=== PATIENT | female | born 2000 | race Caucasian/White ===

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

== ENCOUNTER → 2021-08-25 14:01 | Outpatient (BNVA) | payer OTHER, SELFPAY | PROVIDERS: PCP Family Medicine; Visit Provider Nurse Practitioner Family | DX: R50.9 Fever, unspecified (principal); J10.1 Influenza due to other identified influenza virus with other respiratory manifestations | CPT/HCPCS: 87400 ==

== ENCOUNTER 2021-12-03 06:00 | Outpatient (RCR) | payer OTHER, SELFPAY | END 2021-12-07 23:55 | disposition home or self-care (01) | LOC: TPT 06:00 | PROVIDERS: PCP Family Medicine; Referring Provider Orthopaedic Surgery; Visit Provider Orthopaedic Surgery | DX: Z98.890 Other specified postprocedural states (principal) | CPT/HCPCS: 97032; 97110; 97162 ==

== ENCOUNTER 2021-12-08 06:00 | Outpatient (RCR) | payer OTHER, SELFPAY | END 2022-01-07 23:59 | disposition home or self-care (01) | LOC: TPT 06:00 | PROVIDERS: PCP Family Medicine; Referring Provider Orthopaedic Surgery; Visit Provider Orthopaedic Surgery | DX: Z98.890 Other specified postprocedural states (principal) | CPT/HCPCS: 97110; 97140 ==

== ENCOUNTER 2022-01-08 06:00 | Outpatient (RCR) | payer OTHER, SELFPAY | END 2022-02-06 23:59 | disposition home or self-care (01) | LOC: TPT 06:00 | PROVIDERS: PCP Family Medicine; Referring Provider Orthopaedic Surgery; Visit Provider Orthopaedic Surgery | DX: S83.511A Sprain of anterior cruciate ligament of right knee, initial encounter (principal); X58.XXXA Exposure to other specified factors, initial encounter | CPT/HCPCS: 97110; 97140 ==

== ENCOUNTER 2022-02-07 06:00 | Outpatient (RCR) | payer OTHER, SELFPAY | END 2022-03-09 23:59 | disposition home or self-care (01) | LOC: TPT 06:00 | PROVIDERS: PCP Family Medicine; Visit Provider Orthopaedic Surgery | DX: Z98.890 Other specified postprocedural states (principal) | CPT/HCPCS: 97110; 97140; 97164 ==

== ENCOUNTER 2022-03-10 06:00 | Outpatient (RCR) | payer OTHER, SELFPAY | END 2022-04-08 23:59 | disposition home or self-care (01) | LOC: TPT 06:00 | PROVIDERS: PCP Family Medicine; Visit Provider Orthopaedic Surgery | DX: Z98.890 Other specified postprocedural states (principal) | CPT/HCPCS: 97110; 97140 ==

== ENCOUNTER 2022-06-01 06:00 | Outpatient (RCR) | payer OTHER, SELFPAY | END 2022-06-09 23:59 | disposition home or self-care (01) | LOC: APT 06:00 | PROVIDERS: PCP Family Medicine; Visit Provider Physician Assistant | DX: Z98.890 Other specified postprocedural states (principal) | CPT/HCPCS: 97161 ==

== ENCOUNTER 2022-06-10 06:00 | Outpatient (RCR) | payer OTHER, SELFPAY | END 2022-07-07 23:59 | disposition home or self-care (01) | LOC: APT 06:00 | PROVIDERS: PCP Family Medicine; Visit Provider Physician Assistant | DX: Z98.890 Other specified postprocedural states (principal) | CPT/HCPCS: 97110; 97140 ==

== ENCOUNTER 2022-12-14 14:52 | Emergency (ER) | payer OTHER, SELFPAY ==
[2022-12-14 14:56] VITALS: BP 122/83; PULSE 87; RESP 16; TEMP 37; O2SAT 98; BMI 41.5
[2022-12-14 15:33] VITALS: BP 137/69; PULSE 85; O2SAT 95
--- NOTE | 2022-12-14 16:11 | ED_ITS ---
HPI - Abdominal Pain General: Chief Complaint: Abdominal Pain Stated Complaint: abd pain Time Seen by Provider: 12/14/22 15:33 History of Present Illness: 22-year-old female presents to the emergency department for 3 weeks of postprandial epigastric pain along with nausea. She denies any fevers, stool changes, urinary symptoms. She does not have menstrual cycles due to wearing a control patch. She reports has been taking ibuprofen 4 to most every day. She reports her diet consists almost exclusively of fast food and fried food. She is not having vomiting. She does still have her gallbladder. Associated Symptoms: Reports heartburn and nausea; Denies change in stool character, chills, coffee ground emesis, constipation, diarrhea, dysuria, fever(s), hematochezia, hematemesis, melena, syncope and vomiting Review of Systems General: Reports: 10 or more systems reviewed and unremarkable except in HPI and below Const: Denies: fever(s), chills or body aches ENMT: Denies: throat pain Card: Denies: edema or syncope Resp: Denies: dyspnea or productive cough GI: Reports: abdominal pain, nausea and heartburn; Denies: vomiting, hematemesis, coffee ground emesis, dysphagia, diarrhea, constipation, change in stool character, hematochezia, melena or mucus in stool : Denies: flank pain, dysuria or urinary frequency Musc: Reports: back pain (Unrelated low back pain); Denies: neck pain, extremity pain or extremity swelling Skin/Breast: Denies: rash or erythema PFSH ED PFSH: Social History (System 09/10/21 @ 16:13 by Shannon Nobles) Smoking and tobacco status: never smoked Second hand smoke exposure: No Smoking risk assessment/counseling performed?: No Alcohol intake: never Desire information about alcohol rehabilitation?: No Counseling given: No Substance/Drug Use: never Desire information about substance/drug rehabilitation?: No Counseling given: No Adopted: No Caregiver/support person: No Lives independently: Yes Housing: House Marital status: Single Number of children: 0 service: No Current occupational status: employed Physical Exam Const: COMMON NORMALS: no limitations and alert EXAM LIMITATIONS: no altered mental status HENMT: COMMON NORMALS: normocephalic, atraumatic and external ears normal HEAD & SCALP: normocephalic and atraumatic EXTERNAL EAR: Yes external ears normal MOUTH: no muffled voice Neck/C-Spine: COMMON NORMALS: no JVD GENERAL: Yes normal visual inspection and Yes trachea midline Resp: COMMON NORMALS: normal respiratory effort, No use of accessory muscles and clear to auscultation bilaterally AUSCULTATION: clear to auscultation bilaterally Cardio: COMMON NORMALS: no JVD, regular rate and regular rhythm RATE: regular rate RHYTHM: regular rhythm GI: COMMON NORMALS: Soft to palpation INSPECTION: Yes central obesity PALPATION: Yes Soft to palpation, No Firmness to palpation present (GI), Yes Tenderness to palpation present (GI) (Directly under the xiphoid. No other tenderness), No Guarding due to palpation present (GI) and No Rigid due to palpation OTHER: Negative Morris's. Negative McBurney's. Extremity: COMMON NORMALS: normal to inspection Neuro: COMMON NORMALS: moves all extremities, no focal motor deficits and no sensory deficits noted SENSORIUM/ORIENTATION: Yes alert SPEECH: speech normal Psych: COMMON NORMALS: mental status grossly normal, Normal thought process present, cooperative, normal affect and speech normal SPEECH: Yes normal speech THOUGHT PROCESS: Normal thought process present Skin: COMMON NORMALS: no rashes or lesions noted, turgor normal and no jaundice GENERAL SKIN EXAM: no rashes or lesions noted and turgor normal Course Vital Signs: Vital signs: Vital Signs Temperature 98.6 F 12/14/22 14:56 Pulse Rate 61 12/14/22 19:11 Respiratory Rate 16 12/14/22 14:56 Blood Pressure 136/93 12/14/22 19:11 Pulse Oximetry 100 12/14/22 19:11 Oxygen Delivery Me thod Room Air 12/14/22 19:11 MDM - Abdominal Pain Medical Decision Making This is a pleasant 22-year-old female with morbid obesity who has a BMI of nearly 42. She eats fast food and fried foods for a majority of her diet. She has tenderness just below the xiphoid. She has been taking a lot of ibuprofen. She does not have right upper quadrant tenderness. The differential diagnosis would include hiatal hernia, gastritis, fatty liver disease, biliary colic, IBS, dyspepsia, constipation, potentially peptic ulcer disease, others. She does not have an acute abdomen. I gave her the option of changing her diet, stopping ibuprofen, and starting medication for gastritis versus doing laboratory work-up and ultrasound. She does want to proceed with the ultrasound and labs after discussing with her family. I will give her Nyad, Peyton Schmidt here today while redoing her work-up. Update. White blood cell count 10.6. Alkaline phosphatase mildly elevated. Other LFTs normal. Ultrasound of the gallbladder shows cholelithiasis and fatty infiltration of the liver. No signs of acute cholecystitis. I discussed with the patient and her sister that the epigastric pain could be related to the gallstones. I informed them that she would need to have a strict low-fat diet. I informed them how to find gallbladder diets online. I have made a referral to general surgery. The patient is going to stop taking ibuprofen as she could also have gastritis. She is going to take Tylenol instead and I have put her on a PPI. I have provided Zofran. I have given return precautions. I answered all questions. Lab Data 12/14/22 17:10 12/14/22 17:10 Labs/Radiology: Radiology Impressions Gallbladder Ultrasound 12/14/22 16:11 IMPRESSION: 1. Cholelithiasis. No evidence for acute cholecystitis. 2. Mild diffuse fatty infiltration of the liver. Laboratory Results WBC 10.6 10^3/uL (4.0-10.0) H 12/14/22 17:10 RBC 5.14 10^6/uL (4.1-5.3) 12/14/22 17:10 Hgb 14.0 g/dL (11.5-15.3) 12/14/22 17:10 Hct 42.5 % (37.0-47.0) 12/14/22 17:10 MCV 82.7 fl (81-99) 12/14/22 17:10 MCH 27.2 pg (28.0-34.0) L 12/14/22 17:10 MCHC 32.9 g/dL (30.0-36.0) 12/14/22 17:10 RDW 13.9 % (12.1-15.1) 12/14/22 17:10 Plt Count 277 10^3/cmm (130-400) 12/14/22 17:10 MPV 10.0 fL (7.4-10.4) 12/14/22 17:10 Neut % (Auto) 70.3 % 12/14/22 17:10 Lymph % (Auto) 21.3 % 12/14/22 17:10 Jenkins % (Auto) 7.5 % 12/14/22 17:10 Eos % (Auto) 0.3 % 12/14/22 17:10 Baso % (Auto) 0.3 % 12/14/22 17:10 Neut # (Auto) 7.45 10^3/uL (1.8-7.7) 12/14/22 17:10 Lymph # (Auto) 2.3 10^3/uL (0.8-4.8) 12/14/22 17:10 Jenkins # (Auto) 0.8 10^3/uL (0.2-0.9) 12/14/22 17:10 Eos # (Auto) 0.0 10^3/uL (0.0-0.8) 12/14/22 17:10 Baso # (Auto) 0.0 10^3/uL (0.0-0.1) 12/14/22 17:10 Nucleated RBC % (auto) 0 % 12/14/22 17:10 Nucleated RBCs # 0.0 /100WBC 12/14/22 17:10 Sodium 140 mmol/L (136-145) 12/14/22 17:10 Potassium 3.8 mmol/L (3.5-5.1) 12/14/22 17:10 Chloride 104 mmol/L (98-107) 12/14/22 17:10 Carbon Dioxide 24 mmol/L (22-29) 12/14/22 17:10 Anion Gap 15.8 (5-19) 12/14/22 17:10 BUN 10 mg/dL (6-20) 12/14/22 17:10 Creatinine 0.7 mg/dL (0.5-0.9) 12/14/22 17:10 GFR Calculation 105.6 mL/min (90-130) 12/14/22 17:10 Glucose 88 mg/dL (65-115) 12/14/22 17:10 Calculated Osmolality 288 mOsm/kg (285-295) 12/14/22 17:10 Calcium 8.7 mg/dL (8.5-10.5) 12/14/22 17:10 Total Bilirubin 0.5 mg/dL (0.15-1.2) 12/14/22 17:10 AST 17 U/L (0-32) 12/14/22 17:10 ALT 24 U/L (0-33) 12/14/22 17:10 Alkaline Phosphatase 125 U/L (35-105) H 12/14/22 17:10 Total Protein 7.4 g/dL (6.6-8.7) 12/14/22 17:10 Albumin 4.2 g/dL (3.5-5.2) 12/14/22 17:10 Globulin 3.2 g/dL (1.3-4.6) 12/14/22 17:10 Lipase 11 U/L (13-60) L 12/14/22 17:10 Discharge Plan Discharge Patient Disposition: Home Clinical Impression: Cholelithiasis, Biliary colic, Fatty liver, BMI 40.0-44.9, adult, Acute epigastric pain Condition: Stable Prescriptions: New omeprazole 20 mg capsule,delayed release(DR/EC) 20 mg PO DAILY 56 Days Qty: 60 0RF acetaminophen 500 mg capsule 500 mg PO Q6H PRN (Reason: pain) 30 Days Qty: 60 0RF ondansetron 4 mg tablet,disintegrating 4 mg PO Q6H PRN (Reason: nausea and vomiting) 7 Days Qty: 20 0RF Discontinued ibuprofen [Ibuprofen IB] 200 mg Tablet 200 mg PO Q6H PRN (Reason: Pain) No Action citalopram 20 mg tablet 20 mg PO DAILY Discharge Orders: Discharge ED (Routine); Ordered 12/14/22 Ordered By: Heath Mahmood Referrals: Rosey Carias MD [Primary Care Provider] - Bill Valadez DO [Physician] - 7-10 days (Postprandial epigastric pain with cholelithiasis) Discharge Diet: Low Fat Discharge Activity: Resume usual activity Patient Instructions: Biliary Colic (ED), Abdominal Pain (ED), Opioid Safety, Pain Management Activity Restrictions/Additional Instructions: Today you have been diagnosed with: Gallstones, fatty liver, central obesity. It is imperative that you avoid fatty foods as this will trigger your gallbladder and worsen your fatty liver disease. Additional information has been provided as handouts, please take the time to read and understand this information. It is very important that you follow up with a Doctor as discussed during your visit today, the information to contact your doctor is included in your discharge instructions. Failure to adhere to your follow up instructions may lead to severe disability, injury, or so please make sure to keep your appointments. Please return to the Emergency Department immediately and without fail if you experience any new, worsening, or concerning problems such as: Worsening abdominal pain, chest pain, shortness of breath, headache or body pain, fever, lightheadedness, weakness, numbness, or any other concerning symptoms. If taking a substance like an opiate or other strong pain medication, please do not drive or operate heavy machinery while under the effects of this medicine. Thank you for allowing us to participate in your care today. Coding Level of Care Code ED Vice President Integrated for Azalea Mike
--- NOTE | 2022-12-14 16:11 | USR_ITS ---
PROCEDURE INFORMATION: Exam: US Abdomen, Limited; Right Upper Quadrant Exam date and time: 12/14/2022 4:46 PM Age: 22 years old Clinical indication: Abdominal pain; Epigastric; Additional info: Epigastric pain/nausea after eating TECHNIQUE: Imaging protocol: Real time ultrasound of the abdomen with image documentation. Limited exam focused on the right upper quadrant. COMPARISON: US abdomen complete* [id number] 12/03/2016 9:05 AM FINDINGS: Liver: Mild diffuse increased echogenicity of the liver which measures 13.7 cm in length. Gallbladder: 1.9 cm calculus in the gallbladder. The gallbladder is partially folded with a normal wall thickness. Biliary ducts: Normal. No stones. No dilation. Pancreas: The pancreas is obscured by bowel gas. Right kidney: Normal. No mass. No hydronephrosis. Intraperitoneal space: No ascites. US/US gall bladder [id number] IMPRESSION: 1. Cholelithiasis. No evidence for acute cholecystitis. 2. Mild diffuse fatty infiltration of the liver.
[2022-12-14] MEDS: alum-mag-hydroxide-sime 30 mL UDC PO (16:14)
[2022-12-14] MEDS: ondansetron 4 MG Tablet PO (16:14)
[2022-12-14] MEDS: famotidine 20 mg Tablet 40 MG PO (16:15)
[2022-12-14 16:24] VITALS: BP 149/93; PULSE 82; O2SAT 98
[2022-12-14 17:14] LABS: Basophils % 0.3 %; Eosinophils % 0.3 %; Hematocrit 42.5 % (37.0-47.0); Lymphocytes # 2.3 10^3/uL (0.8-4.8); Lymphocytes % 21.3 %; Mean Corpuscular HGB Conc 32.9 g/dL (30.0-36.0); Mean Corpuscular Hemoglobin 27.2 pg (28.0-34.0); Mean Corpuscular Volume 82.7 fl (81-99); Monocytes # 0.8 10^3/uL (0.2-0.9); Monocytes % 7.5 %; Neutrophils # 7.45 10^3/uL (1.8-7.7); Neutrophils % 70.3 %; Nucleated Red Blood Cells % 0 %; Platelet Count 277 10^3/cmm (130-400); Red Blood Count 5.14 10^6/uL (4.1-5.3); Red Cell Distribution Width 13.9 % (12.1-15.1); White Blood Count 10.6 10^3/uL (4.0-10.0)
[2022-12-14 17:28] VITALS: BP 115/76; PULSE 73; O2SAT 97
[2022-12-14 17:39] LABS: Alanine Aminotransferase 24 U/L (0-33); Albumin Level 4.2 g/dL (3.5-5.2); Alkaline Phosphatase 125 U/L (35-105); Anion Gap 15.8 (5-19); Aspartate Amino Transferase 17 U/L (0-32); Blood Urea Nitrogen 10 mg/dL (6-20); Calcium 8.7 mg/dL (8.5-10.5); Carbon Dioxide 24 mmol/L (22-29); Chloride 104 mmol/L (98-107); Creatinine Clr Calc Pharmacy 159.6709; Globulin 3.2 g/dL (1.3-4.6); Glomerular Filtration Rate 105.6 mL/min (90-130); Glucose 88 mg/dL (65-115); Lipase 11 U/L (13-60); Osmolality Calculated 288 mOsm/kg (285-295); Potassium 3.8 mmol/L (3.5-5.1); Sodium 140 mmol/L (136-145); Total Bilirubin 0.5 mg/dL (0.15-1.2); Total Protein 7.4 g/dL (6.6-8.7)
[2022-12-14 18:30] VITALS: BP 116/63; PULSE 72; O2SAT 98
[2022-12-14 19:11] VITALS: BP 136/93; PULSE 61; O2SAT 100
--- NOTE | 2022-12-15 07:34 | DCPLANNER ---
Addendum entered by Brandy Alcantara 12/23/22 11:50: Patient had a follow up appointment scheduled with general surgery on 12.22.22 -patient did attend appointment. Original Note: manager market development had message to schedule a follow up appointment for patient with general surgery. manager market development sent patients information to the front office staff at general surgery. Patients information will be printed and reviewed. Clinic will call patient with appointment information.
== END 2022-12-14 20:04 | disposition home or self-care (01) ==
PROVIDERS: Emergency Provider Emergency Medicine; PCP Family Medicine
DX: K80.70 Calculus of gallbladder and bile duct without cholecystitis without obstruction (principal); K76.0 Fatty (change of) liver, not elsewhere classified; E66.01 Morbid (severe) obesity due to excess calories; Z68.41 Body mass index [BMI] 40.0-44.9, adult
CPT/HCPCS: 36415; 76705; 80053; 83690; 85025; 99284; Q0162

== ENCOUNTER → 2022-12-22 10:25 | Outpatient (BNVA) | payer OTHER, SELFPAY | PROVIDERS: PCP Family Medicine; Visit Provider Surgery | DX: R94.5 Abnormal results of liver function studies (principal); K82.9 Disease of gallbladder, unspecified; K80.20 Calculus of gallbladder without cholecystitis without obstruction | CPT/HCPCS: 36415; 80048; 80076; 85025 ==

== ENCOUNTER 2023-01-06 05:48 | Day surgery (SDC) | payer OTHER, SELFPAY ==
[2023-01-05 08:47] VITALS: BMI 40.9
[2023-01-06] VITALS (9 sets, daily range): BP systolic 106–134; BP diastolic 54–101; PULSE 53–93; RESP 15–24; TEMP 36.1–36.3; O2SAT 92–99
--- NOTE | 2023-01-06 06:13 | P.HPUD_ITS ---
Surgery/Procedure H&P Update DATE OF PROCEDURE: January 06, 2023 DATE H&P PERFORMED: 12/22/22 H&P UPDATE INFORMATION: I have reviewed H&P completed within last 30 days, I have examined patient prior to procedure, No changes to prior documentation and H&P is in [facility] EMR on date indicated PLANNED PROCEDURE: Operation Date: 01/06/23 07:00 Proposed Procedures p Laparoscopic Cholecystectomy 03088,K80.20(Not Applicable) - Marcos Snow MD
[2023-01-06] MEDS: sodium chloride 0.9% 1,000 ML 30 ML IV (06:21)
--- NOTE | 2023-01-06 06:38 | ANES.PREANE2 ---
Pre-Anesthetic Assessment Height/Weight: Height 1.66 m Weight 113.398 kg Temp Pulse Resp BP Pulse Ox O2 Del Method 97 F L 64 16 126/68 98 Room Air 01/06/23 06:12 01/06/23 06:12 01/06/23 06:12 01/06/23 06:12 01/06/23 06:12 01/06/23 06:12 Operation Date: 01/06/23 07:00 Proposed Procedures p Laparoscopic Cholecystectomy 95204,K80.20(Not Applicable) - Marcos Snow MD Familial anesthetic complications: None Was Beta Leann taken within 24 hours: N/A Was Clonidine taken within 24 hours: N/A Last intake: Intake Last Liquid Date 01/05/23 Last Liquid Time 23:00 Last Solid Date 01/05/23 Last Solid Time 20:00 Social No alcohol and No tobacco Vapes Exam alert, oriented x 3, clear to auscultation bilaterally and regular rate & rhythm Airway Mallampati: Class I Dentition: full and other (braces with 1 loose bracket) Metabolic Morbid Obesity Anesthetic Plan ASA status: 2 Anesthesia: General Risk of > 500 ml blood loss (7ml/kg in children): No Medications/Allergies Home Medications Medication Instructions Recorded Confirmed Last Taken Type acetaminophen 500 mg capsule 500 mg PO Q6H PRN pain 30 days #60 12/14/22 01/06/23 01/04/23 Rx caps citalopram 20 mg tablet 20 mg PO DAILY 12/14/22 01/06/23 01/04/23 History omeprazole 20 mg capsule,delayed 20 mg PO DAILY 8 weeks #60 caps 12/14/22 01/06/23 01/04/23 Rx release Allergies Allergy/AdvReac Type Severity Reaction Status Date / Time adhesive Allergy breaks Verified 12/22/22 09:36 skin out Latex, Natural Rubber Allergy ALGY-Rash Verified 12/22/22 09:36 pseudoephedrine Allergy ADR-Insomni Verified 12/22/22 09:36 a Current Medications Generic Name Dose Route Start Last Admin Trade Name Freq PRN Reason Stop Dose Admin Sodium Chloride 1,000 mls @ 30 mls/hr 01/06/23 06:00 01/06/23 06:21 Sodium Chloride 0.9% IV 01/07/23 05:59 30 mls/hr .Q24H TASHIA Administration PFSH Anesthesia Family History (Updated 12/22/22 @ 09:37 by GIO Baez) Grandmother Cancer cancer unknown what kind Social History (Updated 12/22/22 @ 09:37 by GIO Baez) Smoking and tobacco status: current every day smoker e-cigarettes E-Cigarette Details: with nicotine Second hand smoke exposure: No Smoking risk assessment/counseling performed?: No Alcohol intake: current Alcohol intake frequency: holidays/special occasions only Desire information about alcohol rehabilitation?: No Counseling given: No Substance/Drug Use: never Desire information about substance/drug rehabilitation?: No Counseling given: No Adopted: No Caregiver/support person: No Lives independently: Yes Housing: House Marital status: Single Number of children: 0 service: No Current occupational status: employed Data Anesthesia Cardiac Studies: No Data to Display
[2023-01-06] MEDS: ceFAZolin 2,000 MG in sodium chloride 0.9% (plus) 50 ML 100 MG IV (06:59)
[2023-01-06 07:24] LABS: OR HCG Qualitative Urine Negative (Negative)
[2023-01-06] MEDS: BUPivacaine 0.25% INJ 10 mL INJECTION (07:39)
[2023-01-06] MEDS: lidocaine-epi 1% 20 mL INJ 7 ML INJECTION (07:40)
--- NOTE | 2023-01-06 09:06 | P.OP_ITS ---
Operative Report Date of procedure: January 06, 2023 Pre-op diagnosis: Symptomatic cholelithiasis Post-op diagnosis: Symptomatic cholelithiasis Procedure done: Laparoscopic ostectomy Specimens removed/disposition: Gallbladder Surgeon: Marcos Snow MD Estimated blood loss: 5cc Complications: none Findings: Distended gallbladder, dilated cystic duct measuring up to 1 cm in diameter. Critical view of safety obtained before transecting the duct. Brief History: This is a 22-year-old female with symptomatic cholelithiasis who presents for laparoscopic cholecystectomy after all risk and benefits of the procedure were discussed during my preop visit. Procedure: Patient was taken to the OR, placed in the supine position. Anesthesia was given. The abdomen was prepped and draped in the usual sterile fashion. Timeout was conducted. The abdomen was accessed via a supraumbilical incision with an open technique 12 mm Trocar Was Placed and Fixed to the Fascia with 0 Vicryl. Pneumoperitoneum Was Obtained. Additional 5 Mm Trocars Were Placed in the Epigastric Right Upper Quadrant and Right Flank Region. The Gallbladder Was Retracted Cephalad. The Peritoneum Anterior to Hepatocystic Tanner Was Opened with Electrocautery. This Opening Was Carried down to the Edges of the Gallbladder Where the Gallbladder Meets the Liver. Careful Dissection with [place] and Endo Kitner Was Done on the Hepatocystic Tanner. Cystic Duct and Artery Were Identified in the Lower Third of the Gallbladder Was from the Liver Bed. The Cystic Artery with a Stent Double Clip and Transected. The Cystic Duct Was Noted to Be Short and Dilated, Therefore I Had to Upsize the Epigastric Port to a 12 Mm Trocar to Allow for a Large Clip Portfolio Analyst. The Duct Was Then Clipped and Transected. The Gallbladder Was Excised from the Gallbladder Bed with Electrocautery. Liver Bed and Gallbladder Basing Was Evaluated and Noted to Be Hemostatic and No Evidence of Bile Leak. The Gallbladder Was Retrieved Via the Umbilical Port Site in an Endo Catch Bag. Umbilical Port Site was then closed with Alex-Carmen under direct visualization using 0 Vicryl. The right upper quadrant and right flank ports were removed under direct visualization. This epigastric bur was used to evacuate the pneumoperitoneum and subsequently remove. The wounds were closed with 4-0 Monocryl and Dermabond was applied. At the end of the procedure all counts were correct. The patient was extubated and transferred to the PACU in a stable condition.
[2023-01-06] MEDS: meloxicam 7.5 mg tablet 15 MG PO (10:12)
--- NOTE | 2023-01-06 10:20 | ANE.PACU2 ---
Inpatient post-anesthesia follow up: Airway intact: Yes Vital signs: Temperature 97.4 F Pulse Rate 53 Respiratory Rate 16 Blood Pressure 106/70 Pulse Oximetry 96 Oxygen Delivery Me thod Room Air Oxygen Flow Rate 6 Fraction of Inspir ed Oxygen Hydration adequate: Yes Nausea and vomiting: No Pain level: 1 Mental status: Baseline
== END 2023-01-06 10:20 | disposition home or self-care (01) ==
PROVIDERS: Anesthesiology; PCP Family Medicine; Visit Provider Surgery
PROC: 0FT44ZZ Resection of Gallbladder, Percutaneous Endoscopic Approach (ICD-10-PCS; CPT 47562; principal; 2023-01-06 07:00)
DX: K80.10 Calculus of gallbladder with chronic cholecystitis without obstruction (principal); E66.01 Morbid (severe) obesity due to excess calories; Z68.41 Body mass index [BMI] 40.0-44.9, adult; F17.290 Nicotine dependence, other tobacco product, uncomplicated
CPT/HCPCS: 47562; 81025; 84703; 88304; J0690; J1100; J1200; J1885; J2250; J2405; J2704; J3010; J3490; J7030

== ENCOUNTER 2023-05-22 12:51 | Emergency (ER) | payer OTHER, SELFPAY ==
[2023-05-22 12:57] VITALS: BP 155/82; PULSE 110; RESP 17; TEMP 36.9; O2SAT 100; BMI 41.5
--- NOTE | 2023-05-22 13:13 | XRR_ITS ---
PROCEDURE INFORMATION: Exam: XR Right Knee Exam date and time: 05/22/2023 1:22 PM Age: 22 years old Clinical indication: Pain; Knee; Right TECHNIQUE: Imaging protocol: Radiologic exam of the right knee. Views: 3 views. COMPARISON: No relevant prior studies available. FINDINGS: Bones/joints: Cruciate ligament repair. The femoral interference screw projects in the soft tissues posterior to the distal femur. It is not within bone. The tibial interference screw is visible within the tibia. No osseous injury. Soft tissues: Normal. XR/XR knee RT 3V* [id number] IMPRESSION: Cruciate ligament repair with the femoral interference screw within the soft tissues posterior to the femur.
--- NOTE | 2023-05-22 13:17 | ED_ITS ---
HPI - Extremity Problem General: Chief complaint: Extremity Injury, Lower Stated complaint: knee popped/ pain Time Seen by Provider: 05/22/23 13:10 Source: patient Mode of arrival: ambulatory History of Present Illness: 22-year-old female with a history of pre vious knee arthroscopies for an ACL repair comes in today complaining of pain and had a popping sensation just randomly happened while she was walking. She has discomfort in her right knee now no falls or recent injury her last surgery was several years ago. She tells me at one point they told her she had a screw loose, in her knee MD Complaint: joint pain Onset (ago): hour(s) Location: right and knee Quality: sharp Relieving factors: nothing Exacerbating factors: nothing Associated symptoms: Deny arthralgias, chest pain, fever(s), myalgias, rash or short of breath Review of Systems Const: Denies: fever(s) Card: Denies: chest pain Resp: Denies: dyspnea GI: Denies: abdominal pain : Denies: dysuria, urinary frequency or urinary urgency Musc: Denies: neck pain or back pain Skin/Breast: Denies: rash PFSH ED PFSH: Family History Grandmother Cancer cancer unknown what kind Social History Smoking and tobacco/nicotine status: current every day tobacco/nicotine user e- cigarettes E-Cigarette Details: with nicotine Second hand smoke exposure: No Alcohol intake: current Alcohol intake frequency: holidays/special occasions only Substance/Drug Use: never Adopted: No Caregiver/support person: No Lives independently: Yes Housing: House Marital status: Single Number of children: 0 service: No Current occupational status: employed Physical Exam Const: COMMON NORMALS: no acute distress GENERAL APPEARANCE: cooperative and comfortable ORIENTATION/CONSCIOUSNESS: Yes awake, Yes oriented to person, Yes oriented to place and Yes oriented to time HENMT: COMMON NORMALS: normocephalic, atraumatic and hearing grossly normal bilaterally HEAD & SCALP: normocephalic and atraumatic Resp: COMMON NORMALS: normal respiratory effort, No retractions, No use of accessory muscles and clear to auscultation bilaterally AUSCULTATION: clear to auscultation bilaterally Cardio: COMMON NORMALS: regular rate, regular rhythm and No murmurs present (Cardio) RATE: regular rate RHYTHM: regular rhythm GI: COMMON NORMALS: Soft to palpation and No hepatosplenomegaly present AUSCULTATION: Yes normoactive bowel sounds PALPATION: Yes Soft to palpation, No Tenderness to palpation present (GI), No Guarding due to palpation present (GI) and Yes No hepatosplenomegaly present Extremity: COMMON NORMALS: normal to inspection, capillary refill normal, no clubbing, cyanosis or edema, no calf tenderness and no pedal edema Neuro: SENSORIUM/ORIENTATION: Yes oriented to person, Yes oriented to place and Yes oriented to time Skin: COMMON NORMALS: no rashes or lesions noted GENERAL SKIN EXAM: no rashes or lesions noted Course Vital Signs: Vital signs: Vital Signs Temperature 98.4 F 05/22/23 12:57 Pulse Rate 83 05/22/23 13:45 Respiratory Rate 17 05/22/23 12:57 Blood Pressure 131/89 05/22/23 13:45 Pulse Oximetry 97 05/22/23 13:45 Oxygen Delivery Me thod Room Air 05/22/23 13:45 MDM - Extremity (Nontraumatic) Medical Decision Making X-ray shows the screw for the femoral portion of the ACL tear has migrated out o f the femur is in the soft tissue given its position suspect that is chronic. Mild joint effusion on exam no ligamentous instability or laxity. No laceration bruising or abrasion to the knee. Will place her in a knee immobilizer switch diclofenac to use as needed have her follow-up with orthopedics Medical Records I reviewed the patient's medical records. Lab Data I reviewed the patient's lab results. Radiology Impressions Knee X-Ray 05/22/23 13:13 IMPRESSION: Cruciate ligament repair with the femoral interference screw within the soft tissues posterior to the femur. All radiology interpretation(s) finalized by discharge Discharge Plan Discharge Patient Disposition: Home Clinical Impression: Knee sprain Condition: Stable Prescriptions: New diclofenac sodium 75 mg tablet,delayed release (DR/EC) 75 mg PO Q12H PRN (Reason: pain) Qty: 20 0RF Held meloxicam 15 mg tablet 15 mg PO DAILY Qty: 5 0RF Hold Instructions: Resume on 06/01/23. No Action citalopram 20 mg tablet 20 mg PO DAILY Discharge Orders: Discharge ED (Routine); Ordered 05/22/23 Ordered By: Rylan Simms Referrals: Rosey Carias MD [Primary Care Provider] - Discharge Diet: Usual diet Discharge Activity: Resume usual activity Patient Instructions: Opioid Safety, Pain Management Activity Restrictions/Additional Instructions: Thank you for choosing [facility] for your healthcare needs today. Please realize this is an emergency room and that we are providing you with a medical screening exam and this may not be complete and all inclusive of all the testing and or work up that you may need to determine your ailment or severity of your illness. It is very important that you follow up as instructed or that you return to the Emergency Department should you have concerns or if your condition changes or worsens in any way. You are seen today for right knee pain. A screw from your previous surgery is displaced from the bone and is in the soft tissue, this is most likely not acute. No acute fractures noted on the x-ray. Recommend that you use the knee immobilizer and be nonweightbearing on the knee and reevaluate later this week with orthopedics. You should not bear any weight on the right leg until cleared by orthopedics. 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
[2023-05-22 13:45] VITALS: BP 131/89; PULSE 83; O2SAT 97
[2023-05-22] MEDS: HYDROcodone-acetaminophen 5-325 mg Tablet 1 TAB PO (14:21)
[2023-05-22 14:33] VITALS: PULSE 86; O2SAT 97
--- NOTE | 2023-05-24 08:46 | DCPLANNER ---
Message was sent to ortho on 05/24/23 at 0846. Clinic to contact patient.
== END 2023-05-22 14:35 | disposition home or self-care (01) ==
PROVIDERS: Emergency Provider Family Medicine; PCP Family Medicine
DX: S83.91XA Sprain of unspecified site of right knee, initial encounter (principal); Z72.0 Tobacco use; X58.XXXA Exposure to other specified factors, initial encounter
CPT/HCPCS: 29530; 73562; 99283

== ENCOUNTER → 2023-05-27 15:25 | Outpatient (BNVA) | payer OTHER, SELFPAY | PROVIDERS: PCP Family Medicine; Visit Provider Nurse Practitioner | DX: M25.561 Pain in right knee; G89.29 Other chronic pain; T84.84XA Pain due to internal orthopedic prosthetic devices, implants and grafts, initial encounter; Y79.2 Prosthetic and other implants, materials and accessory orthopedic devices associated with adverse incidents; M23.51 Chronic instability of knee, right knee | CPT/HCPCS: 73560; 73565 ==

== ENCOUNTER 2023-07-02 12:43 | Outpatient (CLI) | payer OTHER, SELFPAY ==
--- NOTE | 2023-07-02 12:47 | MR_ITS ---
WS: [id number] MRI RIGHT KNEE, pre and post arthrogram. HISTORY: M23.51 - Chronic instability of knee, right knee, history of prior ACL repairs. COMPARISON: No similar studies. Knee radiograph 05/27/2023 Prearthrogram: Prior ACL repair. The ACL is vertical in appearance. There is no fluid along the expec carole location of the ACL. PCL is normal. Embedded in the soft tissues posterior to the femur is a scre w fragment measuring 2.8 x 1.1 cm. There is no edema around the screw fragment. This may be from a pr ior fractured screw with displacement. This may not be from the ACL repair that is present now but fr om the prior repair. There is no marrow edema. No fractures. There is a very small joint effusion. No definite meniscal tear. There is slight lateral subluxation of the patella. Post arthrogram: Good injection of the joint. No acute ACL tear is identified. No meniscal tears. No significant joint effusion. No loose bodies. Scattered hypointense signal abnormalities in the joint effusion which is probably injected air. No osteochondral lesion. IMPRESSION: 1. No recurrent ACL tear is identified. 2. Reidentified is a screw fragment posterior to the femoral condyle. There is no associated edema. This may be from a prior ACL repair. Does not appear to be acute. 3. Mild lateral subluxation of the patella. 4. No meniscal tear.
--- NOTE | 2023-07-02 13:00 | IR_ITS ---
WS: [id number] RIGHT KNEE ARTHROGRAM (FLUOROSCOPY) RIGHT knee arthrogram was performed in fluoroscopy prior to MRI evaluation. HISTORY: right knee pain, several prior surgeries including ACL repair. COMPARISON: Knee radiograph 05/27/2023 FLUOROSCOPY TIME: 1min [id number] # of spot films: 2 Procedure, risks and complications were explained to the patient. Complications include but not limit ed to bleeding, infection and contrast reaction. Current medications are reviewed. Skin is cleansed with ChloraPrep. Skin is anesthetized with 1% buffered lidocaine. 22-gauge needle is inserted into the patellofemoral joint. Approximately 30 cc of gadolinium mixture injected without c omplication. Patient will proceed to MRI evaluation immediately. No complications were encountered. Patient is instructed to watch for post procedure infection or ble eding. Patient is also instructed to contact the radiology department with any concerns. Status post ACL repair. Good injection of the joint space with contrast. A femoral interference screw is lying external to the bone in the soft tissues posterior to the femur. IMPRESSION: Uncomplicated RIGHT knee joint injection prior to MR arthrogram.
== END 2023-07-02 12:44 | disposition home or self-care (01) ==
PROVIDERS: PCP Family Medicine; Visit Provider Nurse Practitioner
DX: M25.561 Pain in right knee (principal); G89.29 Other chronic pain; M23.51 Chronic instability of knee, right knee; T84.84XA Pain due to internal orthopedic prosthetic devices, implants and grafts, initial encounter; Y79.2 Prosthetic and other implants, materials and accessory orthopedic devices associated with adverse incidents
CPT/HCPCS: 27369; 73723; 77002; A9577; Q9966

== ENCOUNTER 2023-07-21 11:56 | Outpatient (RCR) | payer OTHER, SELFPAY | END 2023-07-28 23:59 | disposition home or self-care (01) | LOC: SPT 11:56 | PROVIDERS: PCP Family Medicine; Visit Provider Nurse Practitioner | DX: M25.561 Pain in right knee (principal) | CPT/HCPCS: 97161 ==

== ENCOUNTER 2023-08-29 19:41 | Emergency (ER) | payer OTHER, SELFPAY ==
[2023-08-29 19:45] VITALS: BP 136/78; PULSE 91; RESP 16; TEMP 37.1; O2SAT 100; BMI 43.5
--- NOTE | 2023-08-29 20:34 | XRR_ITS ---
PROCEDURE INFORMATION: Exam: XR Right Hip Exam date and time: 08/29/2023 8:43 PM Age: 23 years old Clinical indication: Injury or trauma; Blunt trauma (contusions or hematomas); Right; Patient HX: Fall off of horse onto RT hip on ground. C/O pain. ; Additional info: Fall off a horse, pain TECHNIQUE: Imaging protocol: Radiologic exam of the right hip. Views: 1 view hip with pelvis when performed. COMPARISON: US pelvic complete* [id number] 09/23/2020 11:30 AM FINDINGS: Bones/joints: Unremarkable. No acute fracture. Soft tissues: Unremarkable. XR/XR hip RT 2-3V wo/w pel* [id number] IMPRESSION: No acute findings.
--- NOTE | 2023-08-29 20:37 | ED_ITS ---
HPI - Extremity Problem General: Chief complaint: Extremity Injury, Lower Stated complaint: Right Hip pain Time Seen by Provider: 08/29/23 19:43 History of Present Illness: 23-year-old female comes in today for co mplaints of right hip pain. Patient reports that she slid off the side of her horse landing on her right side. Patient was able to ambulate back to the house but since getting back home she has had increasing pain and discomfort to the right hip. Patient appears nont oxic. Patient denies . Patient takes citalopram routinely for depression. Patient denies any other routine medicines. Patient had taken some ibuprofen at home. Review of Systems General: Reports: 10 or more systems reviewed and unremarkable except in HPI and below PFSH ED PFSH: Medical History Recurrent right knee instability Painful orthopaedic hardware Chronic pain of right knee Surgical History Hx of right knee surgery Family History Grandmother Cancer cancer unknown what kind Social History Smoking and tobacco/nicotine status: current every day tobacco/nicotine user e- cigarettes E-Cigarette Details: with nicotine Second hand smoke exposure: No Alcohol intake: current Alcohol intake frequency: holidays/special occasions only Substance/Drug Use: never Adopted: No Caregiver/support person: No Lives independently: Yes Housing: House Marital status: Single Number of children: 0 service: No Current occupational status: employed Physical Exam Const: COMMON NORMALS: alert HENMT: COMMON NORMALS: atraumatic HEAD & SCALP: atraumatic Neck/C-Spine: COMMON NORMALS: full ROM Resp: COMMON NORMALS: normal respiratory effort and clear to auscultation bilaterally AUSCULTATION: clear to auscultation bilaterally Cardio: COMMON NORMALS: regular rate RATE: regular rate Back/Pelvis: COMMON NORMALS: thoracic and lumbar spine normal to inspection Extremity: COMMON NORMALS: normal to inspection RIGHT LOWER EXTREMITY: Yes hip joint (Decreased range of motion due to pain.) Neuro: SENSORIUM/ORIENTATION: Yes alert Skin: COMMON NORMALS: turgor normal GENERAL SKIN EXAM: turgor normal Course Vital Signs: Vital signs: Vital Signs Temperature 98.7 F 08/29/23 19:45 Pulse Rate 91 08/29/23 19:45 Respiratory Rate 16 08/29/23 19:45 Blood Pressure 136/78 08/29/23 19:45 Pulse Oximetry 100 08/29/23 19:45 Oxygen Delivery Me thod Room Air 08/29/23 19:45 MDM - Extremity (Nontraumatic) Medical Decision Making 23-year-old female comes in today with injury to the right hip. On exam patient appears nontoxic. Patient has pain and discomfort to the right hip. Patient has decreased range of motion of the right hip due to pain. Patient is obese. No spinal tenderness is noted on palpation. Distal pulses and sensation are intact. Differential diagnosis includes pelvic fracture, hip fracture, contusion, strain. X-ray of the pelvis and hip noted no fractures. Patient was given a hydrocodone to help with pain. Recommended acetaminophen and celecoxib for home control of pain. Recommend activity as tolerated. Recommend follow-up with primary care in 3 to 5 days for recheck. Recommend return to ER for new concerns. Lab Data Radiology Impressions Hip/Pelvis X-Ray 08/29/23 20:34 IMPRESSION: No acute findings. All radiology interpretation(s) finalized by discharge Discharge Plan Discharge Patient Disposition: Home Clinical Impression: Fall from horse Qualifiers: Encounter type: initial encounter Qualified Code(s): V80.010A - Animal-rider injured by fall from or being thrown from horse in noncollision accident, initial encounter Injury of right hip Qualifiers: Encounter type: initial encounter Qualified Code(s): S79.911A - Unspecified injury of right hip, initial encounter Condition: Stable Prescriptions: New hydrocodone-acetaminophen 5-325 mg tablet 1 tab PO Q8H PRN (Reason: pain (scale score 7-10)) Qty: 7 0RF celecoxib 200 mg capsule 200 mg PO BID Qty: 20 0RF No Action meloxicam 15 mg tablet 15 mg PO DAILY Qty: 90 0RF citalopram 20 mg tablet 20 mg PO DAILY Discharge Orders: Discharge ED (Routine); Ordered 08/29/23 Ordered By: Donnie Hdz Referrals: Rosey Carias MD [Primary Care Provider] - Discharge Diet: Usual diet Discharge Activity: Increase activity as tolerated Patient Instructions: Musculoskeletal Pain (ED), Opioid Safety Activity Restrictions/Additional Instructions: Activity as tolerated. Use ice or heat to help with pain. Take celecoxib routinely for pain and inflammation. Use acetaminophen for further pain relief. Use hydrocodone as needed for severe pain. Drink plenty of water with medications. Follow-up with primary care in 3 to 5 days for recheck. Return to ED for new concerns. 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
[2023-08-29] MEDS: HYDROcodone-acetaminophen 7.5-325 mg Tablet 1 TAB PO (20:55)
[2023-08-29 21:59] VITALS: PULSE 86; RESP 18; O2SAT 96
== END 2023-08-29 21:56 | disposition home or self-care (01) ==
PROVIDERS: Emergency Provider Nurse Practitioner Family; PCP Family Medicine
DX: S79.911A Unspecified injury of right hip, initial encounter (principal); V80.010A Animal-rider injured by fall from or being thrown from horse in noncollision accident, initial encounter; E66.9 Obesity, unspecified; Z68.41 Body mass index [BMI] 40.0-44.9, adult
CPT/HCPCS: 73502; 99283

== ENCOUNTER 2023-10-28 08:36 | Emergency (ER) | payer OTHER, SELFPAY ==
[2023-10-28 08:42] VITALS: BP 155/111; PULSE 101; RESP 20; TEMP 36.8; O2SAT 96; BMI 46.5
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
[2023-10-28 09:23] LABS: Basophils % 0.2 %; Eosinophils # 0.1 10^3/uL (0.0-0.8); Eosinophils % 0.6 %; Hematocrit 44.4 % (36-47); Lymphocytes # 1.8 10^3/uL (0.8-4.8); Lymphocytes % 14.3 %; Mean Corpuscular HGB Conc 32.4 g/dL (30-55); Mean Corpuscular Hemoglobin 27.3 pg (27-33); Mean Corpuscular Volume 84.3 fl (85-98); Mean Platelet Volume 9.8 fL (7.4-10.4); Monocytes # 0.7 10^3/uL (0.2-0.9); Monocytes % 5.6 %; Neutrophils % 79.1 %; Nucleated Red Blood Cells % 0 %; Platelet Count 288 10^3/cmm (157-399); Red Blood Count 5.27 10^6/uL (3.85-5.65); Red Cell Distribution Width 13.6 % (12.1-15.1); White Blood Count 12.63 10^3/uL (3.29-11.43)
[2023-10-28 09:39] LABS: HCG, Serum Qual Negative (Negative)
[2023-10-28 09:42] LABS: Alanine Aminotransferase 28 U/L (0-33); Albumin Level 4.1 g/dL (3.5-5.2); Alkaline Phosphatase 119 U/L (35-105); Anion Gap 14.1 (5-19); Aspartate Amino Transferase 17 U/L (0-32); Blood Urea Nitrogen 13 mg/dL (6-20); Calcium 9.2 mg/dL (8.5-10.5); Carbon Dioxide 24 mmol/L (22-29); Chloride 105 mmol/L (98-107); Creatinine Clr Calc Pharmacy 197.3551; Globulin 3.6 g/dL (1.3-4.6); Glucose 101 mg/dL (65-115); Osmolality Calculated 288 mOsm/kg (285-295); Potassium 4.1 mmol/L (3.5-5.1); Sodium 139 mmol/L (136-145); Total Bilirubin 0.3 mg/dL (0.15-1.2); Total Protein 7.7 g/dL (6.6-8.7)
--- NOTE | 2023-10-28 10:30 | PC.PHAR ---
PT STATES ONLY TAKES CITALOPRAM 40MG ONCE DAILY. HAS NOT TAKEN IN 2 DAYS.
[2023-10-28 10:40] VITALS: PULSE 93; O2SAT 99
[2023-10-28 11:07] LABS: Add Urine Microscopic? YES; Bilirubin Urine Neg (Negative); Blood Urine Neg (Negative); Glucose Urine UA Norm (Normal); Ketones Urine Negative (Negative); Leukocyte Esterase Urine Trace (Negative); Nitrate Urine Negative (Negative); Protein Urine Neg (Negative); Specific Gravity, Urine 1.005 (1.005-1.030); Urine Appearance Clear (CLEAR); Urine Color Yellow (Yellow); Urobilinogen Urine Norm (Negative); pH Urine 5 (5-7)
[2023-10-28] MEDS: HYDROcodone-acetaminophen 5-325 mg Tablet 1 TAB PO (11:10)
[2023-10-28] MEDS: ketorolac 30 mg/mL INJ IVP (11:10)
[2023-10-28 11:23] LABS: Bacteria Urine 1+ /hpf; Mucus Urine TRACE /hpf; WBC Urine 0-4 /hpf (0-5)
[2023-10-28 11:24] LABS: Add Urine Culture? No; Sperm Urine 1+ /hpf
[2023-10-28 12:09] VITALS: PULSE 88; O2SAT 96
== END 2023-10-28 12:19 | disposition home or self-care (01) ==
PROVIDERS: Emergency Provider Family Medicine; PCP Family Medicine
DX: S32.491A Other specified fracture of right acetabulum, initial encounter for closed fracture (principal); F17.290 Nicotine dependence, other tobacco product, uncomplicated; V89.2XXA Person injured in unspecified motor-vehicle accident, traffic, initial encounter
CPT/HCPCS: 36415; 70450; 71260; 72125; 74177; 80053; 81001; 84703; 85025; 96374; 99285; J1885; Q9967

== ENCOUNTER 2024-03-16 07:58 | Outpatient (CLI) | payer OTHER, SELFPAY ==
[2024-03-16 09:48] LABS: C.Diff PCR (Lab) NEGATIVE (Negative)
== END 2024-03-16 07:59 | disposition home or self-care (01) ==
LOC: LAB 07:59
PROVIDERS: PCP Family Medicine; Visit Provider Surgery
DX: K52.9 Noninfective gastroenteritis and colitis, unspecified (principal)
CPT/HCPCS: 83630; 83993; 87493

== ENCOUNTER → 2024-04-20 16:10 | Outpatient (BNVA) | payer OTHER, SELFPAY | PROVIDERS: PCP Family Medicine; Visit Provider Nurse Practitioner | DX: M25.551 Pain in right hip (principal); M70.61 Trochanteric bursitis, right hip; G57.01 Lesion of sciatic nerve, right lower limb; S32.41 Fracture of anterior wall of acetabulum; X58.XXXS Exposure to other specified factors, sequela | CPT/HCPCS: 73502 ==

== ENCOUNTER → 2024-04-28 11:02 | Outpatient (BNVA) | payer OTHER, SELFPAY | PROVIDERS: PCP Family Medicine; Visit Provider Clinical Nurse Specialist Adult Health | DX: E66.01 Morbid (severe) obesity due to excess calories (principal); Z68.41 Body mass index [BMI] 40.0-44.9, adult; K76.0 Fatty (change of) liver, not elsewhere classified; F41.1 Generalized anxiety disorder | CPT/HCPCS: 80053; 83036; 83525 ==

== ENCOUNTER 2024-07-27 12:58 | Emergency (ER) | payer OTHER, SELFPAY ==
[2024-07-27 13:02] VITALS: BP 161/103; PULSE 100; RESP 16; TEMP 36.8; O2SAT 100; BMI 46.7
--- NOTE | 2024-07-27 13:03 | ECG_ITS ---
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 Measurements Intervals Gregory Rate: 95 P: 14 AK: 161 QRS: -7 QRSD: 87 T: 24 QT: 315 QTc: 396 Interpretive Statements SINUS RHYTHM POSSIBLE ANTERIOR MYOCARDIAL INFARCTION , PROBABLY OLD [30 ms Q WAVE IN V3/V4, OR R < 0.2 mV IN V4] No previous ECG available for comparison Electronically Signed On 07-29-2024 07:43:40 CDT by Eusebio Tan M.D. [email or web address]
--- NOTE | 2024-07-27 14:29 | XR_ITS ---
WS: [id number] Portable AP upright chest, 07/27/2024 Clinical Data: dyspnea/cough Comparison: Acute abdomen series, 12/04/2016 Findings: No nodules, masses or effusions are seen. The heart is normal. The pulmonary vascularity is not increased. No pneumonia or pneumothorax is seen. Monitor leads are on the chest wall. XR/XR chest 1V portable [id number] Impression: Negative chest.
--- NOTE | 2024-07-27 14:31 | ED_ITS ---
HPI - Chest Pain 2 General: Chief Complaint: Chest Pain Stated Complaint: high BP/chest pains Time Seen by Provider: 07/27/24 14:29 History of Present Illness: 24-year-old female presents emergency ro om complaining of elevated blood pressure chest discomfort nausea dizziness headache congestion. She has had some numbness tingling in her hands with rapid breathing earlier that has improved quite a bit. She denies any hemoptysis she has had a scant productive cough. No dysuria urgency or frequency no abdominal pain Associated symptoms: Reports dyspnea; Deny abdominal pain or fever(s) Related Data Home Medications ?Medication ?Instructions ?Recorded ?Confirmed dicyclomine 10 mg capsule 10 mg PO TID PRN spastic col on 07/27/24 07/27/24 metformin 500 mg tablet,extended 1,000 mg PO BID 07/2707/27/24 release 24 hr Previous Rx's ?Medication ?Instructions ?Recorded citalopram 40 mg tablet 40 mg PO DAILY #90 tabs 04/10 levonorgestrel 0.15 mg-ethinyl 1 tab PO DAILY #84 tabs 06/06/24 estradiol 0.03 mg tablet (Amritao (28)) Allergies Allergy/AdvReac Type Severity Reaction Status Date / Time adhesive Allergy breaks Verified 07/27/24 13:05 skin out Latex, Natural Rubber Allergy ALGY-Rash Verified 07/27/24 13:05 pseudoephedrine Allergy ADR-Insomni Verified 07/27/24 13:05 a Review of Systems 2 Const: Denies: fever(s) or chills Card: Denies: chest pain Resp: Reports: dyspnea, non-productive cough and chest congestion GI: Denies: abdominal pain : Denies: dysuria, urinary frequency or urinary urgency Musc: Denies: neck pain or back pain Skin/Breast: Denies: rash PFSH ED 2 PFSH: Medical History Fatty liver Family history of diabetes mellitus PCOS (polycystic ovarian syndrome) Dysmenorrhea Generalized anxiety disorder Right acetabular fracture Recurrent right knee instability Painful orthopaedic hardware Chronic pain of right knee Surgical History Hx of tympanostomy Hx of cholecystectomy Hx of right knee surgery 3 knee surgeries Family History Grandmother Cancer cancer unknown what kind Other Breast cancer Diabetes Heart disease Stroke Social History Smoking and tobacco/nicotine status: never used tobacco/nicotine Second hand smoke exposure: No Alcohol intake: current Alcohol intake frequency: holidays/special occasions only Substance/Drug Use: never Adopted: No Caregiver/support person: No Lives independently: Yes Housing: House Marital status: Number of children: 0 service: No Current occupational status: employed Physical Exam 2 Const: GENERAL APPEARANCE: cooperative ORIENTATION/CONSCIOUSNESS: Yes awake, Yes oriented to person, Yes oriented to place and Yes oriented to time HENMT: COMMON NORMALS: normocephalic, atraumatic and hearing grossly normal bilaterally HEAD & SCALP: normocephalic and atraumatic Resp: COMMON NORMALS: normal respiratory effort, No retractions, No use of accessory muscles and clear to auscultation bilaterally AUSCULTATION: clear to auscultation bilaterally Cardio: COMMON NORMALS: regular rate, regular rhythm and No murmurs present (Cardio) RATE: regular rate RHYTHM: regular rhythm GI: COMMON NORMALS: Soft to palpation and No hepatosplenomegaly present A USCULTATION: Yes normoactive bowel sounds PALPATION: Yes Soft to palpation, No Tenderness to palpation present (GI), No Guarding due to palpation present (GI) and Yes No hepatosplenomegaly present Extremity: COMMON NORMALS: normal to inspection, capillary refill normal, no clubbing, cyanosis or edema, no calf tenderness and no pedal edema Neuro: SENSORIUM/ORIENTATION: Yes oriented to person, Yes oriented to place and Yes oriented to time Skin: COMMON NORMALS: no rashes or lesions noted GENERAL SKIN EXAM: no rashes or lesions noted Course 2 Vital Signs: Vital signs: Vital Signs Temperature 98.2 F 07/27/24 13:02 Pulse Rate 82 07/27/24 15:57 Respiratory Rate 16 07/27/24 13:02 Blood Pressure 147/92 07/27/24 15:57 Pulse Oximetry 92 07/27/24 15:57 Oxygen Delivery Me thod Room Air 07/27/24 15:57 MDM - Chest Pain Medical Decision Making ABGs and her history is suggestive that she probably was hyperventilating prior to coming in. Her other history is suggestive of upper respiratory infection or constellation of symptoms with minimally productive cough. Chest x-ray normal. She states she has been having little diarrhea. I do not recommend any antibiotic at this point I think that would probably add to her constellation of symptoms without really improving her at all. Supportive cares Tylenol and I Profen as needed follow-up as needed Medical Records I reviewed the patient's medical records. Lab Data I reviewed the patient's lab results. 07/27/24 14:49 07/27/24 14:49 Radiology Impressions Chest X-Ray 07/27/24 14:29 Impression: Negative chest. Laboratory Results WBC 13.20 10^3/uL (3.29-11.43) H 07/27/24 14:49 RBC 5.18 10^6/uL (3.85-5.65) 07/27/24 14:49 Hgb 13.70 g/dL (11.27-16.99) 07/27/24 14:49 Hct 42.8 % (36-47) 07/27/24 14:49 MCV 82.6 fl (85-98) L 07/27/24 14:49 MCH 26.4 pg (27-33) L 07/27/24 14:49 MCHC 32.0 g/dL (30-55) 07/27/24 14:49 RDW 14.1 % (12.1-15.1) 07/27/24 14:49 Plt Count 308 10^3/cmm (157-399) 07/27/24 14:49 MPV 9.9 fL (7.4-10.4) 07/27/24 14:49 Neut % (Auto) 75.4 % 07/27/24 14:49 Lymph % (Auto) 18.6 % 07/27/24 14:49 [place] % (Auto) 5.2 % 07/27/24 14:49 Eos % (Auto) 0.2 % 07/27/24 14:49 Baso % (Auto) 0.3 % 07/27/24 14:49 Neut # (Auto) 9.94 10^3/uL (1.8-7.7) H 07/27/24 14:49 Lymph # (Auto) 2.5 10^3/uL (0.8-4.8) 07/27/24 14:49 [place] # (Auto) 0.7 10^3/uL (0.2-0.9) 07/27/24 14:49 Eos # (Auto) 0.0 10^3/uL (0.0-0.8) 07/27/24 14:49 Baso # (Auto) 0.0 10^3/uL (0.0-0.1) 07/27/24 14:49 Nucleated RBC % (auto) 0 % 07/27/24 14:49 Nucleated RBCs # 0.0 /100WBC 07/27/24 14:49 Specimen Type Arterial 07/27/24 14:33 Sample Site Radial, right 07/27/24 14:33 ABG pH 7.41 (7.35-7.45) 07/27/24 14:33 ABG pCO2 34.5 mmHg (35-45) L 07/27/24 14:33 ABG pO2 88.7 mmHg (80.0-100.0) 07/27/24 14:33 ABG PO2/FiO2 Ratio 422 07/27/24 14:33 ABG HCO3 21.8 mmol/L (22-26) L 07/27/24 14:33 ABG O2 Saturation 97.7 07/27/24 14:33 ABG Base Excess -2.2 mmol/L (-2.0-2.0) L 07/27/24 14:33 Oli Test Pos 07/27/24 14:33 A-a O2 Gradient 2.3 mmHg (5-10) L 07/27/24 14:33 Hematocrit 44.2 % (37-47) 07/27/24 14:33 Hgb O2 Saturation 96.0 % (95-100) 07/27/24 14:33 Carboxyhemoglobin 0.6 %THgb (0.4-20.1) 07/27/24 14:33 Methemoglobin 1.1 % (0.4-1.5) 07/27/24 14:33 Total Hemoglobin 14.4 g/dL (12-16) 07/27/24 14:33 Sodium 138.0 mmol/L (131-143) 07/27/24 14:33 Potassium 3.6 mmol/L (3.5-5.0) 07/27/24 14:33 Glucose 96.0 mg/dL (70-115) 07/27/24 14:33 Ionized Calcium 1.2 mmol/L (1.1-1.4) 07/27/24 14:33 O2 Delivery Device Room air 07/27/24 14:33 FiO2 21.0 % 07/27/24 14:33 Order Management Specialist ID Damir 07/27/24 14:33 Sodium 140 mmol/L (136-145) 07/27/24 14:49 Potassium 4.0 mmol/L (3.5-5.1) 07/27/24 14:49 Chloride 104 mmol/L (98-107) 07/27/24 14:49 Carbon Dioxide 24 mmol/L (22-29) 07/27/24 14:49 Anion Gap 16.0 (5-19) 07/27/24 14:49 BUN 9 mg/dL (6-20) 07/27/24 14:49 Creatinine 0.6 mg/dL (0.5-0.9) 07/27/24 14:49 GFR Calculation 123.9 mL/min (90-130) 07/27/24 14:49 Glucose 95 mg/dL (65-115) 07/27/24 14:49 Calculated Osmolality 288 mOsm/kg (285-295) 07/27/24 14:49 Calcium 9.3 mg/dL (8.5-10.5) 07/27/24 14:49 Total Bilirubin 0.3 mg/dL (0.15-1.2) 07/27/24 14:49 AST 23 U/L (0-32) 07/27/24 14:49 ALT 32 U/L (0-33) 07/27/24 14:49 Alkaline Phosphatase 100 U/L (35-105) 07/27/24 14:49 Total Protein 7.6 g/dL (6.6-8.7) 07/27/24 14:49 Albumin 4.2 g/dL (3.5-5.2) 07/27/24 14:49 Globulin 3.4 g/dL (1.3-4.6) 07/27/24 14:49 All radiology interpretation(s) finalized by discharge Discharge Plan Discharge Patient Disposition: Home Clinical Impression: Viral URI with cough, Hyperventilation Condition: Stable Prescriptions: No Action citalopram 40 mg tablet 40 mg PO DAILY Qty: 90 3RF levonorgestrel-ethinyl estrad [[place] (28)] 0.15-0.03 mg tablet 1 tab PO DAILY Qty: 84 0RF metformin 500 mg Tablet Extended Release 24 Hr 1,000 mg PO BID dicyclomine 10 mg capsule 10 mg PO TID PRN (Reason: spastic colon) Discharge Orders: Discharge ED (Routine); Ordered 07/27/24 Ordered By: Rylan Simms Referrals: King Joyce, NETWORK OPERATIONS MANAGER [Primary Care Provider] - Discharge Diet: Usual diet Discharge Activity: Increase activity as tolerated Patient Instructions: Opioid Safety, Pain Management Activity Restrictions/Additional Instructions: Thank you for choosing [facility] for your healthcare needs today. It is very important that you follow up as instructed or that you return to the Emergency Department should you have concerns or if your condition changes or worsens in any way. You were seen in the emergency room with complaint of chest discomfort numbness and tingling shortness of breath lightheadedness dizziness headache cough and congestion. These are all likely sequela of a viral upper respiratory infection. Your chest x-ray was normal. EKG did not show any acute abnormality. Blood gas done that showed a slightly low carbon dioxide which along with your history is suggestive of some degree of hyperventilation. Discharge home recommends routine supportive cares for the viral infection and follow-up as needed Print Language: Kinyarwanda Coding Level of Care Code ED Clerk Secretary for Azalea Mike
[2024-07-27 14:44] LABS: ABG PCO2 34.5 mmHg (35-45); ABG PH Result 7.41 (7.35-7.45); Alveolar-Arterial Oxygen Gradi 2.3 mmHg (5-10); Arterial Blood Gas Hematocrit 44.2 % (37-47); Base Excess ABG -2.2 mmol/L (-2.0-2.0); Blood Gas Allen Test Pos; Blood Gas Operator Identificat WALCI; Blood Gas Sample Site Radial, right; Blood Gas Sample Type Arterial; Carboxyhemoglobin 0.6 %THgb (0.4-20.1); HCO3 ABG 21.8 mmol/L (22-26); Ionized Calcium Level - ABG 1.2 mmol/L (1.1-1.4); Methemoglobin 1.1 % (0.4-1.5); Oxygen Device ROOM AIR; Oxygen Saturation ABG 97.7; PO2 ABG 88.7 mmHg (80.0-100.0); PO2 FiO2 Ratio Arterial Blood 422; Potassium Level - ABG 3.6 mmol/L (3.5-5.0); Total Hemoglobin 14.4 g/dL (12-16)
[2024-07-27 14:54] LABS: Basophils % 0.3 %; Eosinophils % 0.2 %; Hematocrit 42.8 % (36-47); Lymphocytes # 2.5 10^3/uL (0.8-4.8); Lymphocytes % 18.6 %; Mean Corpuscular Hemoglobin 26.4 pg (27-33); Mean Corpuscular Volume 82.6 fl (85-98); Mean Platelet Volume 9.9 fL (7.4-10.4); Monocytes # 0.7 10^3/uL (0.2-0.9); Monocytes % 5.2 %; Neutrophils # 9.94 10^3/uL (1.8-7.7); Neutrophils % 75.4 %; Nucleated Red Blood Cells % 0 %; Platelet Count 308 10^3/cmm (157-399); Red Blood Count 5.18 10^6/uL (3.85-5.65); Red Cell Distribution Width 14.1 % (12.1-15.1)
[2024-07-27 15:11] LABS: Alanine Aminotransferase 32 U/L (0-33); Albumin Level 4.2 g/dL (3.5-5.2); Alkaline Phosphatase 100 U/L (35-105); Aspartate Amino Transferase 23 U/L (0-32); Blood Urea Nitrogen 9 mg/dL (6-20); Calcium 9.3 mg/dL (8.5-10.5); Carbon Dioxide 24 mmol/L (22-29); Chloride 104 mmol/L (98-107); Creatinine Clr Calc Pharmacy 203.0364; Globulin 3.4 g/dL (1.3-4.6); Glomerular Filtration Rate 123.9 mL/min (90-130); Glucose 95 mg/dL (65-115); Osmolality Calculated 288 mOsm/kg (285-295); Sodium 140 mmol/L (136-145); Total Bilirubin 0.3 mg/dL (0.15-1.2); Total Protein 7.6 g/dL (6.6-8.7)
[2024-07-27 15:57] VITALS: BP 147/92; PULSE 82; O2SAT 92
[2024-07-27 16:18] VITALS: BP 123/69; PULSE 95; O2SAT 98
== END 2024-07-27 16:19 | disposition home or self-care (01) ==
PROVIDERS: Emergency Provider Family Medicine; PCP Clinical Nurse Specialist Adult Health
DX: J06.9 Acute upper respiratory infection, unspecified (principal); R05.9 Cough, unspecified; R06.4 Hyperventilation; Z79.84 Long term (current) use of oral hypoglycemic drugs
CPT/HCPCS: 36415; 36600; 71045; 80051; 80053; 82330; 82805; 85025; 93005; 99285

== ENCOUNTER 2024-08-10 15:24 | Outpatient (CLI) | payer OTHER, SELFPAY ==
[2024-08-10 14:36] LABS: Alanine Aminotransferase 33 U/L (0-33); Albumin Level 3.9 g/dL (3.5-5.2); Alkaline Phosphatase 91 U/L (35-105); Anion Gap 14.2 (5-19); Aspartate Amino Transferase 22 U/L (0-32); Blood Urea Nitrogen 10 mg/dL (6-20); Calcium 8.9 mg/dL (8.5-10.5); Carbon Dioxide 23 mmol/L (22-29); Chloride 104 mmol/L (98-107); Chol HDL Ratio 2.63 mg/dL (0.0-4.40); Cholesterol 126 mg/dL (0-200); Creatinine Clr Calc Pharmacy 152.2773; Globulin 3.2 g/dL (1.3-4.6); Glomerular Filtration Rate 88.9 mL/min (90-130); Glucose 104 mg/dL (65-115); HDL Cholesterol 48 mg/dL (60-100); LDL Cholesterol Calculated 59 mg/dL (50-129); LDL HDL Ratio 1.23 RATIO (0.00-3.22); Osmolality Calculated 283 mOsm/kg (285-295); Potassium 4.2 mmol/L (3.5-5.1); Sodium 137 mmol/L (136-145); Total Bilirubin 0.2 mg/dL (0.15-1.2); Total Protein 7.1 g/dL (6.6-8.7); Triglycerides 96 mg/dL (0-150)
[2024-08-10 15:17] LABS: Estmated Average Glucose 103; Hemoglobin A1C 5.2 % (4.0-6.0)
[2024-08-10 16:21] LABS: Creatinine Urine, Random 125 mg/dL (28-217); Microalbum Creatinine Ratio Ur 8 mg/dL (0-20); Microalbumin Random Urine 1 ug/dL (0-20)
[2024-08-10 16:22] LABS: HCG Quantitative < 1.00 mIU/mL
== END 2024-08-10 15:25 | disposition home or self-care (01) ==
LOC: LAB 15:25
PROVIDERS: PCP Clinical Nurse Specialist Adult Health; Visit Provider Internal Medicine
DX: R10.9 Unspecified abdominal pain (principal)
CPT/HCPCS: 36415; 80053; 80061; 82044; 83036; 84702

== ENCOUNTER → 2024-08-21 15:16 | Outpatient (BNVA) | payer OTHER, SELFPAY ==
--- NOTE | 2024-08-21 17:00 | USR_ITS ---
PROCEDURE INFORMATION: Exam: US Duplex Right Upper Extremity Veins, Limited Exam date and time: 08/21/2024 5:18 PM Age: 24 years old Clinical indication: Pain; Arm, upper; Right; Additional info: R. Ue pain and swelling. , No prior auth required. Ref # [id number] TECHNIQUE: Imaging protocol: Real-time duplex ultrasound of the right Upper Extremity with 2-D balderrama scale, color Doppler flow and spectral waveform analysis with image documentation. Limited exam focused on the right upper extremity veins. COMPARISON: CR XR forearm RT 2V [id number] 08/21/2024 3:20 PM FINDINGS: Right deep veins: The right axillary and brachial veins are patent without evidence of thrombus.Doppler waveforms are unremarkable. The visualized right internal jugular and subclavian veins are patent. Radial and ulnar veins are patent. Superficial veins: The visualized right cephalic and basilic veins are patent without thrombus. Soft tissues: No evidence of fluid collection. US/[place] [id number] IMPRESSION: 1. No sonographic evidence of deep venous thrombosis in the right upper extremity.
== END ==
LOC: ORTOACUTE 08-24 11:04
PROVIDERS: PCP Clinical Nurse Specialist Adult Health; Visit Provider Nurse Practitioner
DX: M77.11 Lateral epicondylitis, right elbow (principal); M79.89 Other specified soft tissue disorders; Z72.0 Tobacco use; Z92.0 Personal history of contraception
CPT/HCPCS: 73090; 93971

== ENCOUNTER 2024-08-29 12:29 | Outpatient (CLI) | payer OTHER, SELFPAY ==
[2024-08-29 12:59] LABS: Basophils % 0.1 %; Eosinophils # 0.1 10^3/uL (0.0-0.8); Eosinophils % 0.9 %; Hematocrit 39.4 % (36-47); Lymphocytes # 2.9 10^3/uL (0.8-4.8); Mean Corpuscular Hemoglobin 26.8 pg (27-33); Mean Corpuscular Volume 81.2 fl (85-98); Mean Platelet Volume 9.8 fL (7.4-10.4); Monocytes # 0.9 10^3/uL (0.2-0.9); Monocytes % 7.4 %; Neutrophils # 7.68 10^3/uL (1.8-7.7); Neutrophils % 66.3 %; Nucleated Red Blood Cells % 0 %; Platelet Count 304 10^3/cmm (157-399); Red Blood Count 4.85 10^6/uL (3.85-5.65); Red Cell Distribution Width 14.6 % (12.1-15.1); White Blood Count 11.59 10^3/uL (3.29-11.43)
[2024-08-29 13:06] LABS: Erythrocyte Sedimentation Rate 18 mm/hr (0-15)
[2024-08-29 13:26] LABS: C Reactive Protein 8.7 mg/L (0.0-4.9); Cortisol Random 5.67 ug/dL (2.47-19.5); Free T4 Free Thyroxine 1.23 ng/dL (0.82-1.77)
[2024-08-29 13:57] LABS: C.Diff PCR (Lab) NEGATIVE (Negative)
[2024-08-30 12:14] LABS: Ferritin 98 ng/mL (15-150); Iron 43 ug/dL (37-145)
[2024-08-30 12:30] LABS: Vitamin B12 267 pg/mL (232-1245)
== END 2024-08-29 12:30 | disposition home or self-care (01) ==
PROVIDERS: PCP Clinical Nurse Specialist Adult Health; Visit Provider Clinical Nurse Specialist Adult Health
DX: R10.9 Unspecified abdominal pain (principal); R19.7 Diarrhea, unspecified; R51.9 Headache, unspecified
CPT/HCPCS: 36415; 82533; 82607; 82728; 83540; 84439; 84443; 85025; 85651; 86038; 86140; 87045; 87046; 87338; 87427; 87449; 87493

== ENCOUNTER 2024-10-12 07:55 | Outpatient (CLI) | payer OTHER, SELFPAY ==
[2024-10-12 09:25] LABS: Cortisol Random 9.66 ug/dL (2.47-19.5)
== END 2024-10-12 07:56 | disposition home or self-care (01) ==
PROVIDERS: PCP Clinical Nurse Specialist Adult Health; Visit Provider Internal Medicine
DX: E16.2 Hypoglycemia, unspecified (principal)
CPT/HCPCS: 36415; 82533

== ENCOUNTER 2024-10-13 09:51 | Outpatient (CLI) | payer OTHER, SELFPAY ==
--- NOTE | 2024-10-13 10:01 | US_ITS ---
WS: [id number] ULTRASOUND ABDOMEN CLINICAL INFORMATION: ABDOMINAL PAIN/DIARRHEA FINDINGS: Liver Size: Normal. Craniocaudal length: 14.9 cm. Echogenicity: Coarse Surface nodularity: None. Mass (size and location): None. Bile ducts Intrahepatic ducts: Normal. Common bile duct diameter: 0.5 cm. Gallbladder Cholecystectomy Pancreas Not visualized due to bowel gas Spleen Splenomegaly: None. Craniocaudal length: 9.2 cm. Right kidney: Normal. Hydronephrosis: None. Size: 10.4 cm x 5.9 cm x 5.4 cm Left kidney: Normal. Hydronephrosis: None. Size: 10.6 cm x 4.9 cm x 5.3 cm. Abdominal aorta and IVC Visualized portions are normal. Ascites: None. US/US abdomen complete* [id number] IMPRESSION: Technically difficult study due to bowel gas and body habitus 1. Cholecystectomy. 2. Normal common bile duct 3. Mild diffuse fatty infiltration of the liver 4. No hydronephrosis in either kidney. 5. Normal spleen
== END 2024-10-13 09:52 | disposition home or self-care (01) ==
PROVIDERS: PCP Clinical Nurse Specialist Adult Health; Visit Provider Internal Medicine Gastroenterology
DX: R10.9 Unspecified abdominal pain (principal); R19.7 Diarrhea, unspecified
CPT/HCPCS: 76700

== ENCOUNTER 2024-10-23 15:43 | Outpatient (CLI) | payer OTHER, SELFPAY ==
[2024-10-23 16:24] LABS: Basophils % 0.2 %; Eosinophils # 0.1 10^3/uL (0.0-0.8); Eosinophils % 0.7 %; Hematocrit 41.1 % (36-47); Lymphocytes # 2.5 10^3/uL (0.8-4.8); Mean Corpuscular HGB Conc 31.9 g/dL (30-55); Mean Corpuscular Hemoglobin 26.8 pg (27-33); Mean Corpuscular Volume 84.2 fl (85-98); Monocytes # 0.7 10^3/uL (0.2-0.9); Monocytes % 6.9 %; Neutrophils # 6.94 10^3/uL (1.8-7.7); Nucleated Red Blood Cells % 0 %; Platelet Count 303 10^3/cmm (157-399); Red Blood Count 4.88 10^6/uL (3.85-5.65); Red Cell Distribution Width 14.7 % (12.1-15.1)
[2024-10-23 17:13] LABS: Alanine Aminotransferase 37 U/L (0-33); Albumin Level 4.1 g/dL (3.5-5.2); Alkaline Phosphatase 96 U/L (35-105); Aspartate Amino Transferase 22 U/L (0-32); Blood Urea Nitrogen 11 mg/dL (6-20); Calcium 9.2 mg/dL (8.5-10.5); Carbon Dioxide 26 mmol/L (22-29); Chloride 104 mmol/L (98-107); Glomerular Filtration Rate 123.9 mL/min (90-130); Glucose 82 mg/dL (65-115); Osmolality Calculated 290 mOsm/kg (285-295); Sodium 141 mmol/L (136-145); Total Protein 7.1 g/dL (6.6-8.7)
[2024-10-24 11:45] LABS: Total Bilirubin 0.2 mg/dL (0.15-1.2)
[2024-10-25 15:56] LABS: Beef (27) IgE <0.10 kU/L; Beef Class 0; Lamb (F88) IgE <0.10 kU/L; Lamb Class 0; Pork (F26) IgE <0.10 kU/L; Pork Class 0
[2024-10-26 01:54] LABS: Galactose-alpha-1,3 IgE <0.10 kU/L (<0.10)
== END 2024-10-23 15:44 | disposition home or self-care (01) ==
PROVIDERS: PCP Clinical Nurse Specialist Adult Health; Visit Provider Internal Medicine
DX: R10.12 Left upper quadrant pain (principal); R19.7 Diarrhea, unspecified; E11.9 Type 2 diabetes mellitus without complications
CPT/HCPCS: 36415; 80053; 85025; 86003; 86008; 86140

== ENCOUNTER 2024-10-26 10:21 | Outpatient (CLI) | payer OTHER, SELFPAY ==
--- NOTE | 2024-10-26 10:25 | XR_ITS ---
WS: [id number] Acute abdomen series, 10/26/2024 Clinical Data: R10.12 - Left upper quadrant pain Comparison: Portable chest 07/27/2024 Findings: In the chest there are no nodules, masses or effusions. The heart is normal. The pulmonary vascularity is not increased. No free air is seen beneath the diaphragms. No abnormal intra-abdominal masses or calcifications are seen. There are cholecystectomy clips in the right upper quadrant. The abdomen is gasless and no obstruction is present. XR/XR acute abdomen series [id number] Impression: Negative acute abdomen series.
== END 2024-10-26 10:22 | disposition home or self-care (01) ==
PROVIDERS: PCP Clinical Nurse Specialist Adult Health; Visit Provider Internal Medicine
DX: R10.12 Left upper quadrant pain (principal)
CPT/HCPCS: 74022

== ENCOUNTER 2024-10-26 16:11 | Emergency (ER) | payer OTHER, SELFPAY ==
[2024-10-26 16:11] VITALS: BP 112/79; PULSE 96; RESP 16; TEMP 37.2; O2SAT 95
[2024-10-26 16:24] VITALS: BP 143/89; O2SAT 99
--- NOTE | 2024-10-26 16:49 | W.ED.ABDPA2 ---
HPI - Abdominal Pain General: Chief Complaint: Abdominal Pain Stated Complaint: Abd pain Time Seen by Provider: 10/26/24 16:18 Source: patient Mode of arrival: ambulatory Limitations: no limitations History of Present Illness: 24yo female presents with acute on chronic left upper quadrant abdominal pain. Patient reports that she has been having the left upper quadrant abdominal pain for several months. She has been seen by primary care as well as had abdominal x-ray and ultrasound with no findings. States that she is scheduled to have an EGD as well as colonoscopy on November 13. Reports that she has had increased abdominal pain over the last several days. Reports that she does have chronic diarrhea with up to 12 episodes a day. LMP was within the last month. Patient denies previous abdominal surgeries, fever, vomiting, dysuria, any other concerns at this time. Associated Symptoms: Reports diarrhea and nausea; Denies chills, fever(s) and vomiting Related Data Home Medications ?Medication ?Instructions ?Recorded ?Confirmed metformin 500 mg tablet,extended 1,000 mg PO BID 07/27/24 10/24/24 release 24 hr mwzbicy-dsxiqvhftirel-gociiogs 250 2 tab PO BID headaches 08/28/24 10/24/24 mg-250 mg-65 mg tablet (Pain Reliever ([id number])) Previous Rx's ?Medication ?Instructions ?Recorded famotidine 20 mg tablet (Pepcid) 20 mg PO DAILY #30 tabs 08/28/24 sucralfate 1 gram tablet 1 g PO TID #90 tabs 08/28/24 sumatriptan succinate 25 mg tablet See Rx Instructions PO .COMPLEX 08/30/24 (Imitrex) #20 tabs citalopram 40 mg tablet 40 mg PO DAILY #90 tabs 09/08/24 levonorgestrel 0.15 mg-ethinyl 1 tab PO DAILY #84 tabs 09/08/24 estradiol 0.03 mg tablet (Riley (28)) dicyclomine 10 mg capsule See Rx Instructions .Route 09/11/24 .COMPLEX #90 caps ondansetron 4 mg disintegrating 4 mg PO Q8H PRN nausea and 10/20/24 tablet vomiting #30 tabs metoclopramide HCl 10 mg tablet 10 mg PO Q6H PRN nausea and 10/26/24 (Reglan) vomiting #30 tabs Allergies Allergy/AdvReac Type Severity Reaction Status Date / Time adhesive Allergy breaks Verified 10/24/24 14:39 skin out Latex, Natural Rubber Allergy ALGY-Rash Verified 10/24/24 14:39 pseudoephedrine Allergy ADR-Insomni Verified 10/24/24 14:39 a Review of Systems Const: Denies: fever(s), chills or body aches Card: Denies: chest pain Resp: Denies: dyspnea GI: Reports: abdominal pain, nausea and diarrhea; Denies: vomiting : Denies: flank pain PFSH ED PFSH: Medical History Pain and swelling of right upper extremity Nicotine vapor product user Lateral epicondylitis of right elbow Fatty liver Family history of diabetes mellitus PCOS (polycystic ovarian syndrome) Dysmenorrhea Generalized anxiety disorder Right acetabular fracture Recurrent right knee instability Painful orthopaedic hardware Chronic pain of right knee Surgical History Hx of tympanostomy Hx of cholecystectomy Hx of right knee surgery 3 knee surgeries Family History Grandmother Cancer cancer unknown what kind Other Breast cancer Diabetes Heart disease Stroke Social History Smoking and tobacco/nicotine status: unknown if used tobacco/nicotine Second hand smoke exposure: No Alcohol intake: current Alcohol intake frequency: holidays/special occasions only Substance/Drug Use: never Adopted: No Caregiver/support person: No Lives independently: Yes Housing: House Marital status: Number of children: 0 service: No Current occupational status: employed Physical Exam Const: COMMON NORMALS: no acute distress, patient oriented x3 and alert GENERAL APPEARANCE: cooperative ORIENTATION/CONSCIOUSNESS: Yes awake OTHER: Patient is ambulatory to the exam room unassisted. She is sitting upright on the stretcher no acute distress. She is able to give history with no difficulty. She is interactive with exam appropriately. No family at bedside at time of exam HENMT: COMMON NORMALS: normocephalic and atraumatic HEAD & SCALP: normocephalic and atraumatic Chest: CHEST: Yes Symmetrical chest wall rise Resp: COMMON NORMALS: normal respiratory effort and clear to auscultation bilaterally EFFORT & INSPECTION: Yes able to speak in complete sentences AUSCULTATION: clear to auscultation bilaterally Cardio: COMMON NORMALS: regular rate and regular rhythm RATE: regular rate RHYTHM: regular rhythm GI: COMMON NORMALS: Soft to palpation AUSCULTATION: Yes normoactive bowel sounds PALPATION: Yes Soft to palpation, No Firmness to palpation present (GI), Yes Tenderness to palpation present (GI) Details: LUQ and other (epigastric, umbilical), No Guarding due to palpation present (GI) and No Rigid due to palpation : COMMON NORMALS: Yes no CVA tenderness BLADDER/KIDNEY EXAM: Yes no CVA tenderness Back/Pelvis: COMMON NORMALS: no CVA tenderness Extremity: COMMON NORMALS: full ROM Neuro: COMMON NORMALS: patient oriented x3 SENSORIUM/ORIENTATION: Yes alert Psych: COMMON NORMALS: cooperative Course Vital Signs: Vital signs: Vital Signs Temperature 98.9 F 10/26/24 16:11 Pulse Rate 96 10/26/24 16:11 Respiratory Rate 16 10/26/24 16:11 Blood Pressure 143/89 10/26/24 16:24 Pulse Oximetry 100 10/26/24 20:01 Oxygen Delivery Me thod Room Air 10/26/24 16:11 MDM - Abdominal Pain Medical Decision Making 24yo female presents with acute on chronic left upper quadrant abdominal pain. Patient reports that she has been having the left upper quadrant abdominal pain for several months. She has been seen by primary care as well as had abdominal x-ray and ultrasound with no findings. States that she is scheduled to have an EGD as well as colonoscopy on November 13. Reports that she has had increased abdominal pain over the last several days. Reports that she does have chronic diarrhea with up to 12 episodes a day. LMP was within the last month. Patient denies previous abdominal surgeries, fever, vomiting, dysuria, any other concerns at this time. Patient is nontoxic in appearance. Vital signs are stable. No leukocytosis, white blood cell count is 9.7. No indication of anemia, hemoglobin is 13.9. Platelets are in the normal range of 301. No electrolyte, renal, or hepatic abnormalities noted. UA is grossly unremarkable. Urine microscopy with 2+ bacteria, otherwise unremarkable. CTAP Reveals a probable involuting left ovarian corpus luteal cyst as well as a tiny fat-containing umbilical hernia, no acute intra-abdominal or pelvic pathology noted. Discussed these findings with patient. Patient reported the metoclopramide with diphenhydramine helped for short period of time as she did go to sleep, but now the pain is back. Discussed with patient a single dose of pain medication in the emergency department, but would like to avoid prescription narcotics as it will likely cause constipation. Patient did decline pain medication. Discussed use of ketorolac IV, patient declined as well and will take her medications at home. Discussed with patient concern for possible peptic ulcer and recommend beginning omeprazole or pantoprazole. Patient states that she is currently taking pantoprazole in addition to famotidine and sucralfate, but pantoprazole was not noted on her medication list. Encourage patient to make every effort to keep her appointment for her EGD and colonoscopy next month. Recommend she follow-up with her doctor, call in the next 1 to 2 days within update of her symptoms and to discuss recheck. Return precautions provided. Patient states understanding and has no further questions or concerns at this time. Differential Diagnosis Likely abdominal pain, constipation and diverticulitis Medical Records I reviewed the patient's medical records. Lab Data I reviewed the patient's lab results. 10/26/24 17:02 10/26/24 17:02 Labs/Radiology: Radiology Impressions Abdomen/Pelvis CT 10/26/24 18:06 IMPRESSION: 1. No CT evidence of acute intra-abdominal or pelvic pathology. 2. Additional findings, as above. Laboratory Results WBC 9.70 10^3/uL (3.29-11.43) 10/26/24 17:02 RBC 5.11 10^6/uL (3.85-5.65) 10/26/24 17:02 Hgb 13.90 g/dL (11.27-16.99) 10/26/24 17:02 Hct 41.6 % (36-47) 10/26/24 17:02 MCV 81.4 fl (85-98) L 10/26/24 17:02 MCH 27.2 pg (27-33) 10/26/24 17:02 MCHC 33.4 g/dL (30-55) 10/26/24 17:02 RDW 14.6 % (12.1-15.1) 10/26/24 17:02 Plt Count 301 10^3/cmm (157-399) 10/26/24 17:02 MPV 9.7 fL (7.4-10.4) 10/26/24 17:02 Neut % (Auto) 66.7 % 10/26/24 17:02 Lymph % (Auto) 23.5 % 10/26/24 17:02 Hutchinson % (Auto) 9.1 % 10/26/24 17:02 Eos % (Auto) 0.3 % 10/26/24 17:02 Baso % (Auto) 0.2 % 10/26/24 17:02 Neut # (Auto) 6.47 10^3/uL (1.8-7.7) 10/26/24 17:02 Lymph # (Auto) 2.3 10^3/uL (0.8-4.8) 10/26/24 17:02 Hutchinson # (Auto) 0.9 10^3/uL (0.2-0.9) 10/26/24 17:02 Eos # (Auto) 0.0 10^3/uL (0.0-0.8) 10/26/24 17:02 Baso # (Auto) 0.0 10^3/uL (0.0-0.1) 10/26/24 17:02 Nucleated RBC % (auto) 0 % 10/26/24 17:02 Nucleated RBCs # 0.0 /100WBC 10/26/24 17:02 Sodium 142 mmol/L (136-145) 10/26/24 17:02 Potassium 4.1 mmol/L (3.5-5.1) 10/26/24 17:02 Chloride 105 mmol/L (98-107) 10/26/24 17:02 Carbon Dioxide 25 mmol/L (22-29) 10/26/24 17:02 Anion Gap 16.1 (5-19) 10/26/24 17:02 BUN 10 mg/dL (6-20) 10/26/24 17:02 Creatinine 0.8 mg/dL (0.5-0.9) 10/26/24 17:02 GFR Calculation 88.9 mL/min (90-130) L 10/26/24 17:02 Glucose 81 mg/dL (65-115) 10/26/24 17:02 Calculated Osmolality 292 mOsm/kg (285-295) 10/26/24 17:02 Calcium 9.5 mg/dL (8.5-10.5) 10/26/24 17:02 Magnesium 2.0 mg/dL (1.7-2.3) 10/26/24 17:02 Total Bilirubin 0.2 mg/dL (0.15-1.2) 10/26/24 17:02 AST 20 U/L (0-32) 10/26/24 17:02 ALT 34 U/L (0-33) H 10/26/24 17:02 Alkaline Phosphatase 101 U/L (35-105) 10/26/24 17:02 Total Protein 7.7 g/dL (6.6-8.7) 10/26/24 17:02 Albumin 4.3 g/dL (3.5-5.2) 10/26/24 17:02 Globulin 3.4 g/dL (1.3-4.6) 10/26/24 17:02 Lipase 12 U/L (13-60) L 10/26/24 17:02 HCG, Qual Negative (Negative) 10/26/24 17:02 Urine Color Yellow (Yellow) 10/26/24 17:20 Urine Appearance Clear (CLEAR) 10/26/24 17:20 Urine pH 7.5 (5-7) 10/26/24 17:20 Ur Specific [place] 1.017 (1.005-1.030) 10/26/24 17:20 Urine Protein Negative (Negative) 10/26/24 17:20 Urine Glucose (UA) Negative (Normal) 10/26/24 17:20 Urine Ketones Negative (Negative) 10/26/24 17:20 Urine Blood Negative (Negative) 10/26/24 17:20 Urine Nitrate Negative (Negative) 10/26/24 17:20 Urine Bilirubin Negative (Negative) 10/26/24 17:20 Urine Urobilinogen 1.0 mg/dL (Negative) 10/26/24 17:20 Ur Leukocyte Esterase Negative (Negative) 10/26/24 17:20 Urine RBC 0-2 /hpf (0-2) 10/26/24 17:20 Urine WBC 0-5 /hpf (0-5) 10/26/24 17:20 Ur Squamous Epith Cells 6-10 /hpf (0-5) 10/26/24 17:20 Amorphous Sediment Not Reportable 10/26/24 17:20 Urine Bacteria 2+ /hpf (NONE) H 10/26/24 17:20 Hyaline Casts 1.21 /lpf 10/26/24 17:20 All radiology interpretation(s) finalized by discharge Discharge Plan Discharge Patient Disposition: Home Clinical Impression: Recurrent upper abdominal pain Diarrhea Qualifiers: Diarrhea type: unspecified type Qualified Code(s): R19.7 - Diarrhea, unspecified Condition: Stable Prescriptions: New metoclopramide HCl [Reglan] 10 mg tablet 10 mg PO Q6H PRN (Reason: nausea and vomiting) Qty: 30 0RF No Action Pain Reliever (acetam-aspirin) 250-250-65 mg tablet 2 tab PO BID sucralfate 1 gram tablet 1 g PO TID Qty: 90 0RF famotidine [Pepcid] 20 mg tablet 20 mg PO DAILY Qty: 30 0RF sumatriptan succinate [Imitrex] 25 mg tablet See Rx Instructions PO .COMPLEX Qty: 20 0RF Rx Instructions: take 1 tab at onset of headache; if no relief may repeat 1 tab after at least 2 hrs; max = 4 tabs/24 hr PO levonorgestrel-ethinyl estrad [Kurvelo (28)] 0.15-0.03 mg tablet 1 tab PO DAILY Qty: 84 0RF citalopram 40 mg tablet 40 mg PO DAILY Qty: 90 3RF dicyclomine 10 mg capsule See Rx Instructions .ROUTE .COMPLEX Qty: 90 0RF Dose Instruction: TAKE ONE CAPSULE BY MOUTH THREE TIMES DAILY Rx Instructions: TAKE ONE CAPSULE BY MOUTH THREE TIMES DAILY ondansetron 4 mg tablet,disintegrating 4 mg PO Q8H PRN (Reason: nausea and vomiting) Qty: 30 0RF metformin 500 mg Tablet Extended Release 24 Hr 1,000 mg PO BID Discharge Orders: Discharge ED (Routine); Ordered 10/26/24 Ordered By: Jordin Meadows Referrals: [facility] [employer] [facility] [Primary Care Provider, Family Practice] Discharge Diet: Advance as tolerated Discharge Activity: Resume usual activity Patient Instructions: Abdominal Pain (ED), Pain Management Activity Restrictions/Additional Instructions: No acute concerning abnormalities were noted on your labs today The CT scan showed no acute abnormalities explaining your pain Please continue with your previously prescribed medication to help with your abdominal pain Proceed with the plan for your EGD and colonoscopy next month. Follow-up with your doctor, call tomorrow with an update and to discuss recheck Return to the emergency department if any rapid worsening symptoms, onset of fever associated with worsening, and as needed Print Language: Latvian Coding Level of Care Code ED Skiver Counter for Azalea Mike
[2024-10-26] MEDS: metoclopramide 5 mg/mL SDV 2 mL 10 MG XX (17:14)
[2024-10-26] MEDS: diphenhydrAMINE 50 mg/mL SDV 1mL 25 MG IVP (17:14)
[2024-10-26 17:19] LABS: Basophils % 0.2 %; Eosinophils % 0.3 %; Hematocrit 41.6 % (36-47); Lymphocytes # 2.3 10^3/uL (0.8-4.8); Lymphocytes % 23.5 %; Mean Corpuscular HGB Conc 33.4 g/dL (30-55); Mean Corpuscular Hemoglobin 27.2 pg (27-33); Mean Corpuscular Volume 81.4 fl (85-98); Mean Platelet Volume 9.7 fL (7.4-10.4); Monocytes # 0.9 10^3/uL (0.2-0.9); Monocytes % 9.1 %; Neutrophils # 6.47 10^3/uL (1.8-7.7); Neutrophils % 66.7 %; Nucleated Red Blood Cells % 0 %; Platelet Count 301 10^3/cmm (157-399); Red Blood Count 5.11 10^6/uL (3.85-5.65); Red Cell Distribution Width 14.6 % (12.1-15.1)
[2024-10-26 17:22] LABS: HCG, Serum Qual Negative (Negative)
[2024-10-26 17:31] LABS: Alanine Aminotransferase 34 U/L (0-33); Albumin Level 4.3 g/dL (3.5-5.2); Alkaline Phosphatase 101 U/L (35-105); Anion Gap 16.1 (5-19); Aspartate Amino Transferase 20 U/L (0-32); Blood Urea Nitrogen 10 mg/dL (6-20); Calcium 9.5 mg/dL (8.5-10.5); Carbon Dioxide 25 mmol/L (22-29); Chloride 105 mmol/L (98-107); Globulin 3.4 g/dL (1.3-4.6); Glomerular Filtration Rate 88.9 mL/min (90-130); Glucose 81 mg/dL (65-115); Lipase 12 U/L (13-60); Osmolality Calculated 292 mOsm/kg (285-295); Potassium 4.1 mmol/L (3.5-5.1); Sodium 142 mmol/L (136-145); Total Bilirubin 0.2 mg/dL (0.15-1.2); Total Protein 7.7 g/dL (6.6-8.7)
[2024-10-26 17:54] LABS: Bilirubin Urine Negative (Negative); Blood Urine Negative (Negative); Glucose Urine UA Negative (Normal); Ketones Urine Negative (Negative); Leukocyte Esterase Urine Negative (Negative); Nitrate Urine Negative (Negative); Protein Urine Negative (Negative); Specific Gravity, Urine 1.017 (1.005-1.030); Urine Appearance Clear (CLEAR); Urine Color Yellow (Yellow); pH Urine 7.5 (5-7)
[2024-10-26 17:59] LABS: Add Urine Microscopic? YES; Bacteria Urine 2+ /hpf; Hyaline Casts Urine 1.21 /lpf; RBC Urine 0-2 /hpf (0-2); WBC Urine 0-5 /hpf (0-5)
--- NOTE | 2024-10-26 18:06 | CTR_ITS ---
PROCEDURE INFORMATION: Exam: CT Abdomen And Pelvis With Contrast Exam date and time: 10/26/2024 7:04 PM Age: 24 years old Clinical indication: Abdominal pain; Localized; Left upper quadrant (luq); Prior surgery; Surgery date: 6+ months; Surgery type: Gb; Additional info: Upper abd pain, worsening TECHNIQUE: Imaging protocol: Computed tomography of the abdomen and pelvis with contrast. Axial, coronal and sagittal reformatted images were created and reviewed. Radiation optimization: All CT scans at this facility use at least one of these dose optimization techniques: automated exposure control; mA and/or kV adjustment per patient size (includes targeted exams where dose is matched to clinical indication); or iterative reconstruction. Contrast material: OMNIPAQUE 350; Contrast volume: 100 ml; Contrast route: INTRAVENOUS (IV); COMPARISON: CR XR acute abdomen series [id number] 10/26/2024 10:42 AM RADIATION DOSE METRICS: Total DLP (mGy-cm): 1382.83 FINDINGS: Liver: Unremarkable. Gallbladder and biliary ducts: Status post cholecystectomy. No biliary ductal dilatation. Pancreas: Unremarkable. Spleen: Coarse calcified splenic granulomata. Adrenal glands: Normal. No mass. Kidneys and ureters: No mass. No radiodense calculi. No hydronephrosis. Stomach and bowel: No bowel wall thickening. No obstruction. No pneumatosis. Appendix: Normal. Intraperitoneal space: No free fluid. No organized fluid collection. No free air. Vasculature: Unremarkable. No aneurysm. Lymph nodes: No pathologically enlarged lymph nodes. Urinary bladder: Unremarkable as visualized. Reproductive: Probable involuting left ovarian corpus luteal cyst. Bones/joints: No acute osseous abnormality. Mild degenerative changes. Soft tissues: Tiny, fat containing umbilical hernia. CT/CT abdomen pelvis w con* [id number]: 1[address] No CT evidence of acute intra-abdominal or pelvic pathology. 2. Additional findings, as above.
[2024-10-26 18:07] LABS: Add Urine Culture? No
[2024-10-26] MEDS: iohexol 350 mg/mL 500 mL Btl (per mL) IV (19:07)
[2024-10-26 20:01] VITALS: O2SAT 100
== END 2024-10-26 20:29 | disposition home or self-care (01) ==
PROVIDERS: Emergency Provider Nurse Practitioner; PCP Clinical Nurse Specialist Adult Health
DX: R10.12 Left upper quadrant pain (principal); R19.7 Diarrhea, unspecified; Z79.84 Long term (current) use of oral hypoglycemic drugs
CPT/HCPCS: 36415; 74177; 80053; 81001; 83690; 83735; 84703; 85025; 96374; 96375; 99285; J1200; J2765

== ENCOUNTER → 2024-12-28 15:47 | Outpatient (BNVA) | payer OTHER, SELFPAY | PROVIDERS: PCP Clinical Nurse Specialist Adult Health; Visit Provider Clinical Nurse Specialist Adult Health | DX: R50.9 Fever, unspecified (principal) | CPT/HCPCS: 81000; 87086 ==

== ENCOUNTER → 2025-01-03 13:39 | Outpatient (BNVA) | payer OTHER, SELFPAY | PROVIDERS: PCP Clinical Nurse Specialist Adult Health | DX: N89.8 Other specified noninflammatory disorders of vagina (principal) | CPT/HCPCS: 81513; 87481; 87491; 87591; 87661 ==

== ENCOUNTER 2025-01-25 14:56 | Outpatient (CLI) | payer OTHER, SELFPAY ==
--- NOTE | 2025-01-25 15:00 | US_ITS ---
WS: [id number] ULTRASOUND SOFT TISSUES RIGHT lateral hip. HISTORY: M79.89 - Other specified soft tissue disorders COMPARISON: None available. TECHNIQUE: 2-D and color Doppler imaging is submitted. Ultrasound is directed over the RIGHT lateral hip as directed by the patient. No soft tissue abnormalities are identified. There is no skin thickening. No cystic mass or solid mass. No distortion of the fascial planes. US/US soft tissue/extremity [id number] IMPRESSION: Negative ultrasound over the RIGHT lateral hip.
== END 2025-01-25 14:57 | disposition home or self-care (01) ==
LOC: RAD 14:59
PROVIDERS: PCP Clinical Nurse Specialist Adult Health; Visit Provider Clinical Nurse Specialist Adult Health
DX: M79.89 Other specified soft tissue disorders (principal)
CPT/HCPCS: 76882

== ENCOUNTER 2025-01-31 15:22 | Outpatient (CLI) | payer OTHER, SELFPAY ==
[2025-01-31 17:05] LABS: Hematocrit 43.9 % (36-47); Hemoglobin 14.50 g/dL (11.27-16.99); Mean Corpuscular HGB Conc 33.0 g/dL (30-55); Mean Corpuscular Hemoglobin 28.2 pg (27-33); Mean Corpuscular Volume 85.2 fl (85-98); Nucleated Red Blood Cells % 0 %; Platelet Count 332 10^3/cmm (157-399); Red Blood Count 5.15 10^6/uL (3.85-5.65); White Blood Count 12.09 10^3/uL (3.29-11.43)
[2025-01-31 17:47] LABS: Alanine Aminotransferase 37 U/L (0-33); Albumin Level 4.4 g/dL (3.5-5.2); Alkaline Phosphatase 108 U/L (35-105); Anion Gap 15.5 (5-19); Aspartate Amino Transferase 22 U/L (0-32); Blood Urea Nitrogen 10 mg/dL (6-20); Calcium 9.5 mg/dL (8.5-10.5); Carbon Dioxide 26 mmol/L (22-29); Chloride 104 mmol/L (98-107); Globulin 3.4 g/dL (1.3-4.6); Glucose 94 mg/dL (65-115); Osmolality Calculated 293 mOsm/kg (285-295); Potassium 3.5 mmol/L (3.5-5.1); Sodium 142 mmol/L (136-145); Total Protein 7.8 g/dL (6.6-8.7); Uric Acid 5.7 mg/dL (2.4-5.7)
== END 2025-01-31 15:23 | disposition home or self-care (01) ==
PROVIDERS: PCP Clinical Nurse Specialist Adult Health; Visit Provider Internal Medicine
DX: M25.50 Pain in unspecified joint (principal); E11.9 Type 2 diabetes mellitus without complications
CPT/HCPCS: 36415; 80053; 84550; 85025; 85651; 86140; 86160; 86162; 86200; 86235; 86255; 86376; 86431; 86812

== ENCOUNTER 2025-02-02 07:38 | Outpatient (CLI) | payer OTHER, SELFPAY ==
--- NOTE | 2025-02-02 08:00 | NM_ITS ---
WS: [id number] NUCLEAR MEDICINE GASTRIC EMPTYING EXAMINATION HISTORY: R11.2 - Nausea with vomiting, unspecified COMPARISON: None available. TECHNIQUE: The patient ingested a meal containing 1.04 mCi of Tc 99m sulfur colloid mixed with eggs. The patient was placed in supine position and imaging over the abdomen was performed for a total of 90 minutes. Computer acquisition with the region of interest placed over the stomach to evaluate gastric emptying half-time. Imaging performed of the stomach for a total of 120 minutes. Half-time to emptying of the stomach is normal at 160 minutes. NM/[place] gastric [place]ying [place] [id number] IMPRESSION: Normal gastric emptying time.
== END 2025-02-02 07:39 | disposition home or self-care (01) ==
PROVIDERS: PCP Clinical Nurse Specialist Adult Health; Visit Provider Clinical Nurse Specialist Adult Health
DX: R11.2 Nausea with vomiting, unspecified (principal)
CPT/HCPCS: 78264; A9541

== ENCOUNTER → 2025-03-06 11:42 | Outpatient (BNVA) | payer OTHER, SELFPAY | PROVIDERS: PCP Clinical Nurse Specialist Adult Health; Visit Provider Clinical Nurse Specialist Adult Health | DX: J06.9 Acute upper respiratory infection, unspecified (principal) | CPT/HCPCS: 87880 ==

== ENCOUNTER → 2025-03-08 09:48 | Outpatient (BNVA) | payer OTHER, SELFPAY | PROVIDERS: PCP Clinical Nurse Specialist Adult Health; Visit Provider Clinical Nurse Specialist Adult Health | DX: R11.2 Nausea with vomiting, unspecified (principal); R19.7 Diarrhea, unspecified; J06.9 Acute upper respiratory infection, unspecified | CPT/HCPCS: 86003; 86008; 86308; 87400; 87426; 87880 ==

== ENCOUNTER 2025-03-12 16:21 | Outpatient (CLI) | payer OTHER, SELFPAY ==
[2025-03-12 17:03] LABS: Hematocrit 41.4 % (36-47); Hemoglobin 13.80 g/dL (11.27-16.99); Mean Corpuscular HGB Conc 33.3 g/dL (30-55); Mean Corpuscular Hemoglobin 28.4 pg (27-33); Mean Corpuscular Volume 85.2 fl (85-98); Nucleated Red Blood Cells % 0 %; Platelet Count 295 10^3/cmm (157-399); Red Blood Count 4.86 10^6/uL (3.85-5.65); White Blood Count 9.63 10^3/uL (3.29-11.43)
== END 2025-03-12 16:22 | disposition home or self-care (01) ==
LOC: LAB 16:22
PROVIDERS: PCP Clinical Nurse Specialist Adult Health; Visit Provider Clinical Nurse Specialist Adult Health
DX: R50.9 Fever, unspecified (principal); R59.0 Localized enlarged lymph nodes
CPT/HCPCS: 36415; 85025; 86140